=== PATIENT | female | born 1950 | race Caucasian/White ===

== ENCOUNTER 2020-04-22 04:59 | Inpatient (IN) ==
--- NOTE | 2020-03-19 16:16 | PAT Medication Instructions ---
Medication Instructions Date of Service March 19, 2020 Home Medications acetaminophen [Tylenol] 325 mg PO BID PRN atenolol 50 mg PO QAM lisinopril 20 mg PO PM menthol [Biofreeze (menthol)] 1 applic TOPICAL BID PRN omeprazole magnesium [Prilosec OTC] 20 mg PO PM rizatriptan 10 mg PO DIRECTED PRN STOP taking 24 hours before surgery menthol [Biofreeze (menthol)] 1 applic TOPICAL BID PRN Take morning of surgery With a small sip of water, OTHERWISE NOTHING TO EAT OR DRINK AFTER MIDNIGHT: acetaminophen [Tylenol] 325 mg PO BID PRN (okay to take up to 4 hours prior to surgery if needed) atenolol 50 mg PO QAM rizatriptan 10 mg PO DIRECTED PRN (if needed) Take evening before surgery acetaminophen [Tylenol] 325 mg PO BID PRN (if needed) lisinopril 20 mg PO PM omeprazole magnesium [Prilosec OTC] 20 mg PO PM rizatriptan 10 mg PO DIRECTED PRN (if needed) Other Notes If you have any questions please call us at [phone] or [phone] or [phone] or [phone]
--- NOTE | 2020-03-22 13:22 | Anesthesiology Consultation ---
Date of Service March 22, 2020 Assessment & Plan (1) Encounter for pre-operative examination: Chart Review Chart Review: Acceptable Risk for Surgery (pending preop Covid testing) and Patient seen in Pre Admission Testing Per PAT appt 03/22/20, no recent travel. Educated patient to follow up with surgeon's office regarding Covid testing. Educated on importance of self quarantining, social distancing and wearing mask in public both for the patient and household contacts. Teaching & Discussion Pre-Anesthesia Teaching/Discussion Notes: Instructed NPO after midnight before surgery,except medications with 15 cc of water. Medication instructions provided according to the PAT guidelines. History Surgery Operation Date: 04/22/20 12:35 Proposed Procedures p Right Total Knee Arthroplasty - Johan Mccabe MD Height/Weight Height: 5 ft 1 in Weight: 92 kg Allergies Allergy/AdvReac Type Severity Reaction Status Date / Time Penicillins Allergy Hives Verified 03/15/20 14:19 Medications Home Medications Medication Instructions Recorded Confirmed Last Taken acetaminophen [Tylenol] 325 mg PO BID PRN 03/15/20 03/15/20 Unknown atenolol 50 mg PO QAM 03/15/20 03/15/20 Unknown lisinopril 20 mg PO PM 03/15/20 03/15/20 Unknown menthol [Biofreeze (menthol)] 1 applic TOPICAL BID PRN 03/15/20 03/15/20 Unknown omeprazole magnesium [Prilosec OTC] 20 mg PO PM 03/15/20 03/15/20 Unknown rizatriptan 10 mg PO DIRECTED PRN 03/15/20 03/15/20 Unknown Past Medical History Medical History (Updated 03/22/20 @ 13:49 by Mona Ugalde PA-C) Deviated septum Patient presumes- difficult to breath from right side of nostril GERD (gastroesophageal reflux disease) Well controlled and stable HX: breast cancer left - dx'ed 2012- s/p XRT - currently stable Hypertension Migraine Osteoarthritis Exercise / Class Metabolic Activity II 4-5 Yardwork/Stairs/Walk up hill (one flight of stairs- no chest pain or SOB- does have increased knee pain with ambulation ) Past Surgical History Surgical History History of bilateral tubal ligation History of colonoscopy History of esophagogastroduodenoscopy (EGD) History of lumpectomy of left breast radiation no chemo 2013 History of tooth extraction Past Anesthesia History No Hx of Anesthesia Complications and No Family Hx of Anesthesia Complications History of PONV No Hx of PONV and No Hx of Motion Sickness Social History Smoking Status: Never smoker Do You Dip or Chew Tobacco: No Hx Alcohol Use: No Hx Substance Use: No substance use type: does not use Review of Systems Occ cough secondary to sinus issues. Chronic and stable Snoring- no witnessed apnea. No hx of sleep study Patient denies chest pain, shortness of breath, dyspnea on exertion, wheezing, palpitations. No hx of seizures, stroke, LA. No hx of blood clots or blood transfusions Physical Exam Vital Signs VITALS BP 122/81 P 59 TEMP 97.8 SP02 96% RESP 16 Constitutional + obese; no acute distress ENMT Mouth: no TMJ clicking Thyromental Distance: > or= 3.5 Finger Breadths (3.5) Mallampati Class: III Missing molars Upper front permanent bridge Neck neck extension not limited Respiratory normal respiratory effort; no respiratory distress Auscultation: lungs clear to auscultation bilaterally; no wheezes Cardiovascular Rate/Rhythm: regular rate and regular rhythm Heart Sounds: no murmur Vessels: no carotid bruit Musculoskeletal Spine: no pain with cervical ROM Neurologic moves all extremities Psychiatric Orientation: alert Testing Laboratory Results 03/22/20 13:42 03/22/20 13:42 PT 10.3 Seconds (9.0-12.0) 03/22/20 13:42 INR 1.0 (0.9-1.1) 03/22/20 13:42 APTT 27.6 Seconds (21.0-31.0) 03/22/20 13:42 Hemoglobin A1c 5.8 % (4.5-5.6) H 03/22/20 13:42 Urine Color Dark Yellow 03/22/20 13:42 Urine Appearance Turbid (Clear) A 03/22/20 13:42 Urine pH 5.0 (4.5-7.5) 03/22/20 13:42 Ur Specific [place] 1.030 (1.000-1.030) 03/22/20 13:42 Urine Protein Negative (Negative) 03/22/20 13:42 Urine Glucose (UA) Negative (Negative) 03/22/20 13:42 Urine Ketones Negative (Negative) 03/22/20 13:42 Urine Nitrite Negative (Negative) 03/22/20 13:42 Ur Leukocyte Esterase Negative (Negative) 03/22/20 13:42 Urine WBC (Auto) 1-5 /hpf (0-5) 03/22/20 13:42 Urine RBC (Auto) 0-4 /hpf (0-4) 03/22/20 13:42 U Hyaline Cast (Auto) 1-5 /lpf (0-5) 03/22/20 13:42 U Epithel Cells (Auto) >30 /lpf (0-5) H 03/22/20 13:42 Urine Bacteria (Auto) Negative (Negative) 03/22/20 13:42 Blood Type O Positive 03/22/20 13:42 Antibody Screen NEGATIVE 03/22/20 13:42 Electrocardiogram Date: 03/22/20 Findings: + NSR @ (62) Chest X-Ray Date: 03/22/20 Findings: + NAD and + cardiomegaly (mild) Mild elevation the right hemidiaphragm. Stress Test Date: 12/01/16 Type: exercise (ECHO) Resting EF: 63% Resting LV Function: normal Resting RWMA: + none Valvular Disease: AI (mild) Exercise ECHO is normal without resting LV wall motion abnormalities or i nducible ischemia. Stress EKG response normal. MPHR= 86%. 5 METS achieved. No significant arrhythmias. Mild concentric LVH. Grade I diastolic dysfunction. Moderately enlarged LA.
--- NOTE | 2020-03-22 14:33 | XRay Report ---
XR chest Pre-admission PA/Lat HISTORY: Preop. COMPARISON: None. FINDINGS: The lungs are clear. The heart is mildly enlarged. Mild elevation the right hemidiaphragm. No pleural effusions. No pneumothorax. There is a small surgical clip within the left breast. IMPRESSION: Mild cardiomegaly. Otherwise, no acute process within the chest. ACT 112: Negative or not required by law. Electronically signed by: Scar Ackerman M.D. 03/22/2020 2:32 PM
--- NOTE | 2020-03-22 15:36 | Electrocardiogram Report ---
Test Reason : Blood Pressure : / mmHG Vent. Rate : 062 BPM Atrial Rate : 062 BPM P-R Int : 154 ms QRS Dur : 088 ms QT Int : 452 ms P-R-T Axes : 017 003 031 degrees QTc Int : 458 ms Normal sinus rhythm Normal ECG No previous ECGs available Confirmed by Javan Baer ([id number]) on 03/22/2020 3:35:30 PM Referred By: Johan Mccabe Confirmed By:Javan Baer
[2020-03-22 15:59] LABS: Basophils # (auto) 0.01 K/uL (0-0.2); Basophils % (auto) 0.1 %; Eosinophils # (auto) 0.12 K/uL (0-0.5); Eosinophils % (auto) 1.6 %; Hematocrit (blood only) 44.6 % (37-47); Hemoglobin 14.3 g/dL (12.0-16.0); Immature Granulocytes # (auto) 0.01 K/uL (0.00-0.02); Immature Granulocytes % (auto) 0.1 %; Lymphocytes # (auto) 1.62 K/uL (1.2-3.4); Lymphocytes % (auto) 22.1 %; Mean Corpuscular Hemoglobin 28.5 pg (25-34); Mean Corpuscular Hgb Conc 32.1 g/dL (32-36); Monocytes % (auto) 8.2 %; Neutrophils # (auto) 4.98 K/uL (1.4-6.5); Neutrophils % (auto) 67.9 %; Platelet Count 286 K/uL (130-400); RDW Coefficient of Variation 14.2 % (11.5-14.5); RDW Standard Deviation 46.5 fL (36.4-46.3); Red Blood Count 5.01 M/uL (4.2-5.4); White Blood Count 7.34 K/uL (4.8-10.8)
[2020-03-22 16:02] LABS: Appearance Urine Turbid (Clear); Bacteria Urine Automated Negative (Negative); Blood Urine Negative (Negative); Color Urine Dark Yellow; Epithelial Cell Urine Auto >30 /lpf (0-5); Glucose Urine UA Negative (Negative); Ketones Urine Negative (Negative); Leukocyte Esterase Urine Negative (Negative); Nitrite Urine Negative (Negative); Protein Urine Negative (Negative); RBC Urine Automated 0-4 /hpf (0-4); Urobilinogen Urine Negative (Negative)
[2020-03-22 16:05] LABS: Albumin Level 3.7 gm/dl (3.4-5.0); BUN Creatinine Ratio 22.4 (10-20); Bilirubin Urine Negative (Negative); Calcium 9.6 mg/dl (8.5-10.1); Creatinine Clr Calc Pharmacy 72.2 ml/min; Est GFR (African American) 92.8; Ictotest Urine Negative (Negative); Potassium 4.2 mmol/L (3.5-5.1)
[2020-03-22 16:07] LABS: Partial Thromboplastin Time 27.6 Seconds (21.0-31.0); Prothrombin Time 10.3 Seconds (9.0-12.0)
[2020-03-23 05:39] LABS: Estimated Average Glucose 120 mg/dl; Hemoglobin A1C 5.8 % (4.5-5.6)
--- NOTE | 2020-04-21 12:31 | History & Physical Report ---
Date of Service April 21, 2020 Assessment & Plan (1) Primary osteoarthritis of right knee: Treatment options discussed. She has failed conservative measures as above. Risks, benefits and alternatives to surgery including but not limited to infection, DVT, pain, stiffness, need for revision surgery, damage to blood vessels, damage to nerves, PE, , were discussed with the patient and they wish to proceed. Plan will be for right total knee arthroplasty at [facility] on 04/22/20. Will plan on ASA 81mg BID x 1 mo for DVT prophylaxis, home with home health PT upon discharge. All questions answered. F/u post operatively. History of Present Illness Chief Complaint: Right knee pain Primary Care Provider: NO PCP Patient is a 70 year old female with PMHx significant for HTN and breast Ca who presents with longstanding right knee pain. She is unable to carry out her normal daily activity due to pain. She has failed conservative measures inclu ding cortisone injections, viscoelastic injections, and NSAIDs. She would like to proceed with right knee replacement. Patient denies headaches, sweats, fevers, chills, double vision, blurred vision, cough, sore throat, dysphagia, chest pain, sob, wheezing, n/v/d/c, numbness, tingling, fatigue, urinary symptoms, mood disorders. ROS positive for right knee pain and stiffness. Allergies Allergy/AdvReac Type Severity Reaction Status Date / Time Penicillins Allergy Hives Verified 03/15/20 14:19 Home Medications Home Medications Medication Instructions Recorded Confirmed Type acetaminophen [Tylenol] 325 mg PO BID PRN 03/15/20 03/15/20 History atenolol 50 mg PO QAM 03/15/20 03/15/20 History lisinopril 20 mg PO PM 03/15/20 03/15/20 History menthol [Biofreeze (menthol)] 1 applic TOPICAL BID PRN 03/15/20 03/15/20 History omeprazole magnesium [Prilosec OTC] 20 mg PO PM 03/15/20 03/15/20 History rizatriptan 10 mg PO DIRECTED PRN 03/15/20 03/15/20 History Past Med/Surg History Medical History (Updated 04/21/20 @ 12:31 by Devan Proctor) Deviated septum Patient presumes- difficult to breath from right side of nostril GERD (gastroesophageal reflux disease) Well controlled and stable HX: breast cancer left - dx'ed 2013- s/p XRT - currently stable Hypertension Migraine Osteoarthritis Surgical History History of bilateral tubal ligation History of colonoscopy History of esophagogastroduodenoscopy (EGD) History of lumpectomy of left breast radiation no chemo 2012 History of tooth extraction Social History Smoking Status: Never smoker Second Hand Exposure: Yes; Do You Dip or Chew Tobacco: No; Tobacco Cessation Education Requested by Patient: No Hx Alcohol Use: No Hx Substance Use: No Preferred Language: Malagasy Communication Ability: Effective Surgical Scrub Technologist Required: No Beliefs That Will Affect Care: None Current Living Situation: Spouse Other Information That Helps Us Care for You: No Feels Safe at Home: Yes Safety Concerns: Feels Safe At This Time Review of Systems All systems reviewed & are unremarkable except as noted in HPI & below Physical Exam Constitutional: well developed and well nourished; no acute distress Eyes: PERRL, conjunctivae normal, anicteric sclerae ENMT: external ear and nose normal, oropharynx normal Neck: trachea midline, no thyromegaly Respiratory: normal respiratory effort, lungs clear to auscultation Cardiovascular: RRR, no murmur, no edema Musculoskeletal: Right knee: Painful ROM 0-100 degrees, stable to valgus and varus stress. Mild to moderate effusion. Mild crepitation. Positive [place] Skin: no rashes, warm and dry Neurologic: patellar DTR's 2+ bilat, sensation intact Psychiatric: A+Ox3, euthymic affect Results & Data ([facility]) Laboratory Results Lab Results 03/22/20 03/22/20 03/22/20 Range/Units 13:42 13:42 13:42 WBC 7.34 (4.8-10.8) K/uL RBC 5.01 (4.2-5.4) M/uL Hgb 14.3 (12.0-16.0) g/dL Hct 44.6 (37-47) % MCV 89.0 (80-100) fL MCH 28.5 (25-34) pg MCHC 32.1 (32-36) g/dL RDW Std Deviation 46.5 H (36.4-46.3) fL RDW Coeff of Trina 14.2 (11.5-14.5) % Plt Count 286 (130-400) K/uL MPV 11.0 H (7.4-10.4) fL Immature Gran % (Auto) 0.1 % Neut % (Auto) 67.9 % Lymph % (Auto) 22.1 % [place] % (Auto) 8.2 % Eos % (Auto) 1.6 % Baso % (Auto) 0.1 % Neut # (Auto) 4.98 (1.4-6.5) K/uL Lymph # (Auto) 1.62 (1.2-3.4) K/uL [place] # (Auto) 0.60 H (0.11-0.59) K/uL Eos # (Auto) 0.12 (0-0.5) K/uL Baso # (Auto) 0.01 (0-0.2) K/uL Immature Gran # (Auto) 0.01 (0.00-0.02) K/uL PT 10.3 (9.0-12.0) Seconds INR 1.0 (0.9-1.1) APTT 27.6 (21.0-31.0) Seconds PTT Ratio 1.0 Sodium (136-145) mmol/L Potassium (3.5-5.1) mmol/L Chloride (98-107) mmol/L Carbon Dioxide (21-32) mmol/L Anion Gap (3-11) BUN (7-18) mg/dl Creatinine (0.6-1.2) mg/dl Est Cr Clr Drug Dosing ml/min Est GFR ( Amer) Est GFR (Non-Af Amer) BUN/Creatinine Ratio (10-20) Glucose (70-99) mg/dl Estimat Average Glucose mg/dl Hemoglobin A1c (4.5-5.6) % Calcium (8.5-10.1) mg/dl Albumin (3.4-5.0) gm/dl Urine Color Urine Appearance (Clear) Urine pH (4.5-7.5) Ur Specific [place] (1.000-1.030) Urine Protein (Negative) Urine Glucose (UA) (Negative) Urine Ketones (Negative) Urine Blood (Negative) Urine Nitrite (Negative) Urine Bilirubin (Negative) Urine Urobilinogen (Negative) Ur Leukocyte Esterase (Negative) Urine WBC (Auto) (0-5) /hpf Urine RBC (Auto) (0-4) /hpf U Hyaline Cast (Auto) (0-5) /lpf U Epithel Cells (Auto) (0-5) /lpf Urine Bacteria (Auto) (Negative) Blood Type O Positive Antibody Screen NEGATIVE 03/22/20 03/22/20 03/22/20 Range/Units 13:42 13:42 13:42 WBC (4.8-10.8) K/uL RBC (4.2-5.4) M/uL Hgb (12.0-16.0) g/dL Hct (37-47) % MCV (80-100) fL MCH (25-34) pg MCHC (32-36) g/dL RDW Std Deviation (36.4-46.3) fL RDW Coeff of Trina (11.5-14.5) % Plt Count (130-400) K/uL MPV (7.4-10.4) fL Immature Gran % (Auto) % Neut % (Auto) % Lymph % (Auto) % [place] % (Auto) % Eos % (Auto) % Baso % (Auto) % Neut # (Auto) (1.4-6.5) K/uL Lymph # (Auto) (1.2-3.4) K/uL [place] # (Auto) (0.11-0.59) K/uL Eos # (Auto) (0-0.5) K/uL Baso # (Auto) (0-0.2) K/uL Immature Gran # (Auto) (0.00-0.02) K/uL PT (9.0-12.0) Seconds INR (0.9-1.1) APTT (21.0-31.0) Seconds PTT Ratio Sodium 143 (136-145) mmol/L Potassium 4.2 (3.5-5.1) mmol/L Chloride 110 H (98-107) mmol/L Carbon Dioxide 28 (21-32) mmol/L Anion Gap 5.0 (3-11) BUN 17 (7-18) mg/dl Creatinine 0.76 (0.6-1.2) mg/dl Est Cr Clr Drug Dosing 72.2 ml/min Est GFR ( Amer) 92.8 Est GFR (Non-Af Amer) 80.0 BUN/Creatinine Ratio 22.4 H (10-20) Glucose 98 (70-99) mg/dl Estimat Average Glucose 120 mg/dl Hemoglobin A1c 5.8 H (4.5-5.6) % Calcium 9.6 (8.5-10.1) mg/dl Albumin 3.7 (3.4-5.0) gm/dl Urine Color Dark Yellow Urine Appearance Turbid A (Clear) Urine pH 5.0 (4.5-7.5) Ur Specific [place] 1.030 (1.000-1.030) Urine Protein Negative (Negative) Urine Glucose (UA) Negative (Negative) Urine Ketones Negative (Negative) Urine Blood Negative (Negative) Urine Nitrite Negative (Negative) Urine Bilirubin Negative (Negative) Urine Urobilinogen Negative (Negative) Ur Leukocyte Esterase Negative (Negative) Urine WBC (Auto) 1-5 (0-5) /hpf Urine RBC (Auto) 0-4 (0-4) /hpf U Hyaline Cast (Auto) 1-5 (0-5) /lpf U Epithel Cells (Auto) >30 H (0-5) /lpf Urine Bacteria (Auto) Negative (Negative) Blood Type Antibody Screen Diagnostic Findings Right knee: Tricompartmental degenerative changes throughout the knee, bone on bone medial compartment with periarticular osteophyte formation and subchondral sclerosis.
[2020-04-22] MEDS ORDERED: ROPIVACAINE 0.5% HCL/PF 150 MG, BUPIVACAINE 0.5% MPF 30 ML, EPINEPHrine 30MG/30ML (OR U... INSTIL SCH ×2 (06:00)
[2020-04-22] MEDS ORDERED: LR 500ML BOLUS, THEN 15ML/HR IV SCH (06:00)
[2020-04-22] MEDS ORDERED: CeleBREX 200 MG CAP PO SCH (06:00)
[2020-04-22] MEDS ORDERED: METOCLOPRAMIDE HCL 10 MG TABLET PO SCH (06:00)
[2020-04-22] MEDS ORDERED: GABAPENTIN 300 MG CAP PO SCH (06:00)
[2020-04-22] MEDS ORDERED: FAMOTIDINE 20 MG TAB PO SCH (06:00)
[2020-04-22] MEDS ORDERED: TRANEXAMIC ACID 1,000 MG **IV Intra-op IV SCH (06:00)
[2020-04-22] MEDS ORDERED: TRANEXAMIC ACID 1,000 MG **IV Pre-op IV SCH (06:00)
[2020-04-22] MEDS ORDERED: ACETAMINOPHEN 500 MG TAB PO SCH (06:00)
[2020-04-22] MEDS ORDERED: CLINDAMYCIN 600 MG/54 ML BAG IV SCH (06:00)
[2020-04-22] MEDS ORDERED: OXYCODONE HCL 10 MG TABCR (OXYCONTIN) PO SCH (06:00)
[2020-04-22] MEDS ORDERED: dexAMETHasone 4 MG TAB PO SCH (06:00)
[2020-04-22] MEDS ORDERED: BUPIVACAINE 0.5 % 5 MG/1 ML PF 10ML VIAL ONE (06:40)
[2020-04-22] MEDS ORDERED: BUPIVACAINE/EPINEPHRINE 0.25% 1:200,000 30 ML VIAL ONE (06:40)
[2020-04-22] MEDS ORDERED: DEXAMETHASONE SOD INJ 4 MG/ML VIAL ONE (06:40)
[2020-04-22] MEDS ORDERED: MIDAZOLAM HCL 1 MG/ML 2ML VIAL ONE (06:56)
[2020-04-22] MEDS ORDERED: fentaNYL citrate 100 MCG/2 ML VIAL ONE (06:56)
--- NOTE | 2020-04-22 06:59 | History & Physical Bridge Note ---
Date of Service April 22, 2020 History & Physical Bridge Note I have examined the patient, reviewed the History & Physical and in the interval since the performance of the History & Physical I have noted the following changes of clinical significance: no changes noted
[2020-04-22] MEDS ORDERED: BACITRACIN INJ 50,000 UNIT VIAL ONE (07:03)
[2020-04-22] MEDS ORDERED: fentaNYL citrate 100 MCG/2 ML VIAL IV PRN (07:36)
[2020-04-22] MEDS ORDERED: ATROPINE SULFATE 0.1 MG/ML 10ML SYR IV PRN (07:36)
[2020-04-22] MEDS ORDERED: ONDANSETRON INJ 2 MG/ML 2 ML VIAL IV PRN ×2 (07:36→10:59)
[2020-04-22] MEDS ORDERED: ePHEDrine sulfate 50 MG/ML AMP IV PRN (07:36)
[2020-04-22] MEDS ORDERED: LIDOCAINE HCL 2% 2 ML VIAL/AMP(20MG/ML) INFIL ONE (08:34)
[2020-04-22] MEDS ORDERED: PROPOFOL IV EMULSION 10 MG/ML 20 ML VIAL IV ONE ×2 (08:34→09:57)
[2020-04-22] MEDS ORDERED: ONDANSETRON INJ 2 MG/ML 2 ML VIAL ONE (08:34)
[2020-04-22] MEDS ORDERED: PHENYLEPHRINE 100MCG/ML 5ML SYR ONE (09:15)
--- NOTE | 2020-04-22 09:52 | Operative Report ---
Post Operative Report Pre & Post Diagnosis Operation Date: 04/22/20 07:50 Pre-Op Diagnosis: Osteoarthritis, Right Knee Post-Op Diagnosis: Osteoarthritis, Right Knee I identified the patient and participated in the time-out.: Yes Procedure Operation Date: 04/22/20 07:50 Actual Procedures p Right Total Knee Arthroplasty(Right) - Johan Mccabe MD Surgeon Johan Mccabe MD Elevator Repairer Devan Proctor PA-C Estimated Blood Loss 20 Findings Consistent with Post-Op Diagnosis Specimens Bone and tissue Drains None Anesthesia Type MAC Spinal Regional Complications none Disposition Accompanied Patient To Recovery: No Disposition: Recovery Room Indications The patient is a 70-year-old female longstanding arthritic change in the right knee. Is ptyy-ie-mpma medial compartment. She is failed conservative measures including injection, anti-inflammatories and rehab. She wishes to proceed with a right total knee arthroplasty. Description of Procedure Risks benefits and alternatives of surgery including but not limited to infection, DVT, pain, stiffness, need for surgery, damage to blood vessels, damage to nerves or risks of anesthesia were discussed with the patient and they wished to proceed. The patient was identified and the laterality was confirmed and marked. They received a preoperative antibiotic as well as a spinal anesthetic and an abductor canal block. A well-padded tourniquet was applied and then the limb was prepped and draped in standard manner with ChloraPrep. The limb was exsanguinated and the tourniquet was inflated. I made a standard anterior incision. I sharply incised the skin then utilized Bovie electrocautery to achieve hemostasis. I made a medial parapatellar arth rotomy and mobilized the patella laterally. I then excised the anterior horns of the medial and lateral meniscus as well as the infrapatellar fat pad. I elevated a portion of the MCL off of the tibia. I then pinned into place a patient-matched distal femoral cutting guide and made my distal femoral resection. I then pinned into place the 5 in 1 femoral cutting guide. I made my anterior, posterior and chamfer cuts. I then excised the cruciates and the remaining portions of the menisci. I then pinned into place a patient- matched tibial cutting guide and made my tibial resection. I then pinned into place the tibial plate a utilizing alignment peggy to confirm rotation. I then cut for the post. Utilizing a lamina rock cutter and I then removed posterior osteophytes off the femur. I then placed a trial femur into position and cut for the trochlear component. I then sequentially trialed to size the polyethylene. We had good stability mediolaterally once we got up to a 15 poly-but she was losing extension so I elected to proceed with a constrained liner and there was good stability with a strain liner and full range of motion with a 13 constrained until there was good soft tissue balancing and range of motion. I then prepared the patella with a freehand cut utilizing sagittal saw. I sized and drilled for the patella. There was good tracking to the patella no lateral release was needed. All the trial components were removed. The deep tissues were anesthetized with an ortho mix solution. Then with Simplex HV with gentamicin cement, I cemented my definitive components. Definitive components, Mora and Nephew David 2: Femur 3 Tibia 3 Poly 13 constrained Patella 29 oval A betadine soak was performed. The arthrotomy was closed with interrupted #1 Vicryl suture subcutaneous tissue was closed with interrupted 2-0 Vicryl suture. The skin was closed with with sarah. An Acticoat and Moni dressing were placed. Sterile dressings were applied. All needle and sponge counts were correct at the end of the procedure patient was transferred to the PACU in stable condition without apparent complication. The PA-C was necessary for assistance with procedure for assistance in positioning, prepping, draping, retraction and closure. I attest to the content of the Intraoperative Record and any orders documented therein. Any exceptions are noted below.
--- NOTE | 2020-04-22 10:58 | XRay Report ---
RIGHT KNEE 2 VIEWS History: Right total knee arthroplasty. Degenerative arthritis. Postop. FINDINGS: The patient is status post a right total knee arthroplasty. The hardware is intact. No frac ture or dislocation. Skin sarah are in place. IMPRESSION: Right total knee arthroplasty. No evidence for hardware complication. ACT 112: Negative or not required by law. Electronically signed by: Scar Ackerman M.D. 04/22/2020 10:57 AM
[2020-04-22] MEDS ORDERED: METOCLOPRAMIDE HCL INJ 5 MG/ML 2 ML VIAL IV PRN (10:59)
[2020-04-22] MEDS ORDERED: bisacodyL 10 MG SUPP PR PRN (10:59)
[2020-04-22] MEDS ORDERED: RIZATRIPTAN BENZOATE 10 MG TAB PO PRN (10:59)
[2020-04-22] MEDS ORDERED: MAGNESIUM HYDROXIDE SUSP 30 ML UDC PO PRN (10:59)
[2020-04-22] MEDS ORDERED: VANCOMYCIN CONSULT ACTIVE PRN (10:59)
[2020-04-22] MEDS ORDERED: NALOXONE HCL 0.4 MG/1 ML VIAL/CARP IV PRN (10:59)
[2020-04-22] MEDS: SODIUM CHLORIDE 0.9% 1000ML 1,000 ML IV SCH ×2 (12:13→20:37)
--- NOTE | 2020-04-22 12:25 | Anesthesiology Progress Note ---
Date of Service April 22, 2020 Anesthesia Post Procedure Vital Signs Vital Signs: Temp Pulse Pulse Resp BP BP Pulse Ox 04/22/20 12:10 36.4 C L 68 16 109/73 95 04/22/20 11:41 36.3 C L 62 16 112/72 96 04/22/20 11:00 36.5 C 65 17 110/69 97 04/22/20 10:45 36.6 C 64 16 108/68 95 04/22/20 10:35 65 16 105/65 95 04/22/20 10:25 67 16 105/62 97 04/22/20 10:16 36.9 C 72 16 106/64 95 04/22/20 06:11 36.6 C 56 L 18 148/83 H 97 Pain Intensity Right Knee: Pain Intensity: 1 Transfer of Care Handoff Completed per policy Notes Mental Status: alert / awake / arousable Patient Amnestic to Procedure: Yes Nausea / Vomiting: adequately controlled Pain: adequately controlled Airway Patency, RR, SpO2: stable & adequate BP & HR: stable & adequate Hydration State: stable & adequate Anesthetic Complications: no major complications apparent
--- NOTE | 2020-04-22 12:42 | Consultation ---
Date of Consultation April 22, 2020 Assessment & Plan (1) Primary osteoarthritis of right knee: S/P R TKA by Dr. Mccabe POD #0 EBL 20 ml pt tolerated procedure well Pain/wound management per Ortho Activity and therapy as directed by Ortho Encourage incentive spirometry and wean O2 as able Monitor H&H, preop 14.3 and 44.6 (2) Hypertension: BP controlled continue lisinopril and atenolol parameters placed monitor (3) GERD (gastroesophageal reflux disease): continue PPI (4) DVT prophylaxis: ASA BID per ortho Disposition: per primary Follow up: PCP Shahana Hollins PA-C upon discharge Pt was seen and examined in collaboration with Dr. Andrade, please see addendum Thank you for this consultation. We will follow the patient with you during their hospital stay. You can reach a member of the [facility] Hospitalist Team 26/03 via pager @ [phone]. Supervising Physician Co-Signing Physician Notes Patient seen and examined by me, care coordinated with Madyson Husain PA-C, please refer to her note above for further details. Pt is a 70 y/o female with hx of HTN, HLD, prediabetes, history of migraine, history of left breast CA status post lumpectomy, anxiety who presented for elective right total knee arthroplasty. She tolerated procedure well. She denies any fever, chills, sweats, lightheadedness, dizziness, chest pain, shortness breath, cough, n/v/d, abdominal pain. Her hypertension is controlled with atenolol and lisinopril. She did take her atenolol this morning. She states she often forgets to take lisinopril. She does have history of left breast cancer this otherwise in remission. She is currently not on any hormonal medication. She is currently sitting up in bed, in no acute distress. Her daughter is at the bedside. Patient is alert and oriented x3, answering questions appropriately. Lung sounds are clear to auscultation b/l without any wheezing rhonchi or crackles. She was encouraged to use incentive spirometry. Heart sounds regular. Abdomen soft, nontender, nondistended, obese. No sensory loss noted on her lower extremities however patient is not able to move her lower extremities at this moment (post surg). Skin is otherwise warm, dry, well perfused. We will monitor her vital signs, and adjust medication accordingly given her known hypertension. Last A1c 5.8%, no concerns. Preop EKG was normal. Will monitor for postop blood loss anemia. Encourage incentive spirometry. Please contact us with any questions or concerns. Dominguez Andrade MD History of Present Illness Requesting Physician: Dr. Mccabe Reason for Consultation: Post op medical management Attending Physician: Johan Mccabe MD History of Present Illness This is a 70-year-old female who has significant past medical history of HTN, HLD, prediabetes, history of migraine, history of left breast CA status post lumpectomy, anxiety who presents for elective right total knee arthroplasty. She tolerated procedure well. Currently she denies any pain and is concerned because, "I cannot move my legs." She denies any fever, chills, sweats, lightheadedness, dizziness, chest pain, shortness breath, cough, n/v/d, abdominal pain. Prior to procedure she was urinating without difficulty and denies any melena, hematochezia. Her hypertension is controlled with atenolol and lisinopril. She did take her atenolol this morning. She states she often forgets to take lisinopril. She does have history of left breast cancer this otherwise in remission. She is currently not on any hormonal medication. Allergies Allergy/AdvReac Type Severity Reaction Status Date / Time Penicillins Allergy Hives Verified 04/22/20 05:36 Home Medications Home Medications Medication Instructions Recorded Confirmed Type acetaminophen [Tylenol] 325 mg PO BID PRN 03/15/20 04/22/20 History atenolol 50 mg PO QAM 03/15/20 04/22/20 History lisinopril 20 mg PO PM 03/15/20 04/22/20 History menthol [Biofreeze (menthol)] 1 applic TOPICAL BID PRN 03/15/20 04/22/20 History omeprazole magnesium [Prilosec OTC] 20 mg PO PM 03/15/20 04/22/20 History rizatriptan 10 mg PO DIRECTED PRN 03/15/20 04/22/20 History Patient History Medical History (Updated 04/22/20 @ 13:15 by Madyson Husain PA-C) Deviated septum Patient presumes- difficult to breath from right side of nostril GERD (gastroesophageal reflux disease) Well controlled and stable HX: breast cancer left - dx'ed 2013- s/p XRT - currently stable Hypertension Migraine Osteoarthritis Surgical History History of bilateral tubal ligation History of colonoscopy History of esophagogastroduodenoscopy (EGD) History of lumpectomy of left breast radiation no chemo 2012 History of tooth extraction Family History Sister Cerebral aneurysm, Onset Age: 26 Social History Smoking Status: Never smoker Second Hand Exposure: Yes; Do You Dip or Chew Tobacco: No; Tobacco Cessation Education Requested by Patient: No Hx Alcohol Use: No Hx Substance Use: No Preferred Language: Greek Communication Ability: Effective 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 Results & Data ([facility]) Vital Signs (Past 12 Hours) Vital Signs Temp Pulse Pulse Resp BP BP Pulse Ox 04/22/20 11:00 36.5 C 65 17 110/69 97 04/22/20 10:45 36.6 C 64 16 108/68 95 04/22/20 10:35 65 16 105/65 95 04/22/20 10:25 67 16 105/62 97 04/22/20 10:16 36.9 C 72 16 106/64 95 04/22/20 06:11 36.6 C 56 L 18 148/83 H 97 Laboratory Results Preoperative lab work H&H 14.3 and 44.6, RBC 7.34, platelet 286 BUN 17, creatinine 0.76 Diagnostic Findings Knee Xray: IMPRESSION: Right total knee arthroplasty. No evidence for hardware complication. CXR: IMPRESSION: Mild cardiomegaly. Otherwise, no acute process within the chest. Medications Administered Acetaminophen (Acetaminophen 500 Mg Tab) 1,000 mg PO PREOP CHELI Stop: 04/22/20 18:00 Last Admin: 04/22/20 05:52 Dose: 1,000 mg Documented by: [id number] Celecoxib (Celebrex 200 Mg Cap) 200 mg PO PREOP CHELI Stop: 04/22/20 18:00 Last Admin: 04/22/20 05:53 Dose: 200 mg Documented by: [id number] Dexamethasone (Dexamethasone 4 Mg Tab) 8 mg PO PREOP CHELI Stop: 04/22/20 18:00 Last Admin: 04/22/20 05:54 Dose: 8 mg Documented by: [id number] Famotidine (Famotidine 20 Mg Tab) 20 mg PO PREOP CHELI Stop: 04/22/20 18:00 Last Admin: 04/22/20 05:54 Dose: 20 mg Documented by: [id number] Gabapentin (Gabapentin 300 Mg Cap) 300 mg PO PREOP CHELI Stop: 04/22/20 18:00 Last Admin: 04/22/20 05:53 Dose: 300 mg Documented by: [id number] Lactated Ringer's (Lr) 1,000 mls @ 15 mls/hr IV .Q24H CHELI Stop: 04/22/20 18:00 Last Infusion: 04/22/20 08:08 Dose: 0 mls/hr Documented by: [id number] Admin: 04/22/20 05:42 Dose: 15 mls/hr Documented by: [id number] Clindamycin Phosphate (Cleocin) 600 mg in 54 mls @ 100 mls/hr IV PREOP CHELI Stop: 04/23/20 05:59 Last Infusion: 04/22/20 11:13 Dose: 0 mls/hr Documented by: [id number] Admin: 04/22/20 08:08 Dose: 100 mls/hr Documented by: [id number] Tranexamic Acid (Tranexamic Acid / 0.7% Nacl) 1,000 mg in 100 mls @ 600 mls/hr IV TODAY@0600 CHELI Stop: 04/22/20 18:00 Last Infusion: 04/22/20 11:10 Dose: 0 mls/hr Documented by: [id number] Admin: 04/22/20 07:53 Dose: 600 mls/hr Documented by: [id number] Tranexamic Acid (Tranexamic Acid / 0.7% Nacl) 1,000 mg in 100 mls @ 600 mls/hr IV TODAY@0600 CHELI Stop: 04/22/20 18:00 Last Infusion: 04/22/20 11:10 Dose: 0 mls/hr Documented by: [id number] Admin: 04/22/20 09:32 Dose: 600 mls/hr Documented by: [id number] Sodium Chloride (Nss 1000ml) 1,000 mls @ 100 mls/hr IV .Q10H CHELI Stop: 04/23/20 06:00 Last Admin: 04/22/20 12:13 Dose: 100 mls/hr Documented by: [id number] Metoclopramide HCl (Metoclopramide Hcl 10 Mg Tablet) 10 mg PO PREOP CHELI Stop: 04/22/20 18:00 Last Admin: 04/22/20 05:54 Dose: 10 mg Documented by: [id number] Oxycodone HCl (Oxycodone Hcl 10 Mg Tabcr (Oxycontin)) 10 mg PO PREOP CHELI Stop: 04/22/20 18:00 Last Admin: 04/22/20 05:53 Dose: 10 mg Documented by: [id number] Discontinued Medications Bacitracin (Bacitracin Inj 50,000 Unit Vial) Confirm Administered Dose 50,000 units .ROUTE .STK-MED ONE Stop: 04/22/20 07:04 Last Admin: 04/22/20 09:33 Dose: 50,000 units Documented by: [id number] Ropivacaine 150 mg/Bupivacaine HCl 30 ml/Epinephrine HCl 0.15 mg/Ketorolac Tromethamine 30 mg/Dexamethasone 4 mg/ Ketamine HCl 10 mg/ Clonidine HCl 100 mcg/ Sodium Chloride 93.35 mls @ 0 mls/hr INSTIL PREOP CHELI Stop: 04/22/20 12:00 Last Admin: 04/22/20 09:33 Dose: 93.4 mls/hr Documented by: [id number]
[2020-04-22] MEDS: ACETAMINOPHEN 500 MG TAB PO SCH ×2 (13:33→22:39)
[2020-04-22] MEDS: OXYCODONE HCL IR 5 MG TAB (IMMEDIATE RELEASE) PO PRN (19:27)
[2020-04-22] MEDS: SENNA 8.6 MG TAB PO SCH (20:39)
[2020-04-22] MEDS: ASPIRIN 81 MG ECTAB PO SCH (20:40)
[2020-04-22] MEDS: DOCUSATE SODIUM 100 MG CAP PO SCH (20:40)
[2020-04-22] MEDS: CeleBREX 200 MG CAP PO SCH (20:40)
[2020-04-22] MEDS: PANTOprazole 40 MG TAB PO SCH (20:41)
[2020-04-22] MEDS: lisinopriL 20 MG TAB PO SCH ×2 (20:41→20:47)
[2020-04-22] MEDS ORDERED: VANCOMYCIN HCL 1,500 MG in SODIUM CHLORIDE 0.9% 500 ML IV SCH (21:00)
[2020-04-23] MEDS: ACETAMINOPHEN 500 MG TAB PO SCH ×3 (05:52→21:03)
[2020-04-23 06:25] LABS: Hematocrit (blood only) 33.9 % (37-47); Mean Corpuscular Hemoglobin 29.1 pg (25-34); Mean Corpuscular Hgb Conc 32.4 g/dL (32-36); Mean Corpuscular Volume 89.7 fL (80-100); Mean Platelet Volume 10.6 fL (7.4-10.4); Platelet Count 237 K/uL (130-400); RDW Coefficient of Variation 14.2 % (11.5-14.5); RDW Standard Deviation 46.9 fL (36.4-46.3); Red Blood Count 3.78 M/uL (4.2-5.4); White Blood Count 15.05 K/uL (4.8-10.8)
[2020-04-23 06:55] LABS: BUN Creatinine Ratio 20.9 (10-20); Calcium 8.6 mg/dl (8.5-10.1); Creatinine Clr Calc Pharmacy 66.9 ml/min; Est GFR (African American) 84.6; Potassium 4.5 mmol/L (3.5-5.1)
--- NOTE | 2020-04-23 07:34 | Orthopedic Progress Note ---
Date of Service April 23, 2020 Assessment & Plan (1) Primary osteoarthritis of right knee: POD#1 Right TKA -Pain management -PT/OT -DVT prophylaxis-SCDs, TEDs, [id number] bid -Am labs-hemoglobin at 11 down from 14.3 preop. Acute blood loss anemia likely due to surgical loss vs dilutional effect -D/C planning-home with HHPT likely tomorrow. Admission and Anticipated Discharge Date Admission Date: April 22, 2020 Subjective Patient seen sitting in bedside chair this morning. She is doing well, minimal pain. No chest pain, sob, dizziness, nausea, vomiting. Is having some gas type pain this morning. Review of Systems Review of Systems: All systems reviewed & are unremarkable except as noted in HPI & below Physical Exam Physical Exam: Right knee dressing is c/d/i, toes mobile, good dorsiflexion, no calf tenderness. Distally n/v status is intact. Constitutional: well developed and well nourished; no acute distress Results & Data ([facility]) Vital Signs (Past 12 Hours) Vital Signs Temp Pulse Resp BP Pulse Ox 04/23/20 03:04 36.8 C 73 16 104/64 94 04/22/20 23:12 36.7 C 70 16 113/69 94 Laboratory Results Lab Results 03/22/20 03/22/20 03/22/20 Range/Units 13:42 13:42 13:42 WBC 7.34 (4.8-10.8) K/uL RBC 5.01 (4.2-5.4) M/uL Hgb 14.3 (12.0-16.0) g/dL Hct 44.6 (37-47) % MCV 89.0 (80-100) fL MCH 28.5 (25-34) pg MCHC 32.1 (32-36) g/dL RDW Std Deviation 46.5 H (36.4-46.3) fL RDW Coeff of Trina 14.2 (11.5-14.5) % Plt Count 286 (130-400) K/uL MPV 11.0 H (7.4-10.4) fL Immature Gran % (Auto) 0.1 % Neut % (Auto) 67.9 % Lymph % (Auto) 22.1 % [place] % (Auto) 8.2 % Eos % (Auto) 1.6 % Baso % (Auto) 0.1 % Neut # (Auto) 4.98 (1.4-6.5) K/uL Lymph # (Auto) 1.62 (1.2-3.4) K/uL [place] # (Auto) 0.60 H (0.11-0.59) K/uL Eos # (Auto) 0.12 (0-0.5) K/uL Baso # (Auto) 0.01 (0-0.2) K/uL Immature Gran # (Auto) 0.01 (0.00-0.02) K/uL PT 10.3 (9.0-12.0) Seconds INR 1.0 (0.9-1.1) APTT 27.6 (21.0-31.0) Seconds PTT Ratio 1.0 Sodium (136-145) mmol/L Potassium (3.5-5.1) mmol/L Chloride (98-107) mmol/L Carbon Dioxide (21-32) mmol/L Anion Gap (3-11) BUN (7-18) mg/dl Creatinine (0.6-1.2) mg/dl Est Cr Clr Drug Dosing ml/min Est GFR ( Amer) Est GFR (Non-Af Amer) BUN/Creatinine Ratio (10-20) Glucose (70-99) mg/dl Estimat Average Glucose mg/dl Hemoglobin A1c (4.5-5.6) % Calcium (8.5-10.1) mg/dl Albumin (3.4-5.0) gm/dl Urine Color Urine Appearance (Clear) Urine pH (4.5-7.5) Ur Specific [place] (1.000-1.030) Urine Protein (Negative) Urine Glucose (UA) (Negative) Urine Ketones (Negative) Urine Blood (Negative) Urine Nitrite (Negative) Urine Bilirubin (Negative) Urine Urobilinogen (Negative) Ur Leukocyte Esterase (Negative) Urine WBC (Auto) (0-5) /hpf Urine RBC (Auto) (0-4) /hpf U Hyaline Cast (Auto) (0-5) /lpf U Epithel Cells (Auto) (0-5) /lpf Urine Bacteria (Auto) (Negative) Blood Type O Positive Antibody Screen NEGATIVE 03/22/20 03/22/20 03/22/20 Range/Units 13:42 13:42 13:42 WBC (4.8-10.8) K/uL RBC (4.2-5.4) M/uL Hgb (12.0-16.0) g/dL Hct (37-47) % MCV (80-100) fL MCH (25-34) pg MCHC (32-36) g/dL RDW Std Deviation (36.4-46.3) fL RDW Coeff of Trina (11.5-14.5) % Plt Count (130-400) K/uL MPV (7.4-10.4) fL Immature Gran % (Auto) % Neut % (Auto) % Lymph % (Auto) % [place] % (Auto) % Eos % (Auto) % Baso % (Auto) % Neut # (Auto) (1.4-6.5) K/uL Lymph # (Auto) (1.2-3.4) K/uL [place] # (Auto) (0.11-0.59) K/uL Eos # (Auto) (0-0.5) K/uL Baso # (Auto) (0-0.2) K/uL Immature Gran # (Auto) (0.00-0.02) K/uL PT (9.0-12.0) Seconds INR (0.9-1.1) APTT (21.0-31.0) Seconds PTT Ratio Sodium 143 (136-145) mmol/L Potassium 4.2 (3.5-5.1) mmol/L Chloride 110 H (98-107) mmol/L Carbon Dioxide 28 (21-32) mmol/L Anion Gap 5.0 (3-11) BUN 17 (7-18) mg/dl Creatinine 0.76 (0.6-1.2) mg/dl Est Cr Clr Drug Dosing 72.2 ml/min Est GFR ( Amer) 92.8 Est GFR (Non-Af Amer) 80.0 BUN/Creatinine Ratio 22.4 H (10-20) Glucose 98 (70-99) mg/dl Estimat Average Glucose 120 mg/dl Hemoglobin A1c 5.8 H (4.5-5.6) % Calcium 9.6 (8.5-10.1) mg/dl Albumin 3.7 (3.4-5.0) gm/dl Urine Color Dark Yellow Urine Appearance Turbid A (Clear) Urine pH 5.0 (4.5-7.5) Ur Specific [place] 1.030 (1.000-1.030) Urine Protein Negative (Negative) Urine Glucose (UA) Negative (Negative) Urine Ketones Negative (Negative) Urine Blood Negative (Negative) Urine Nitrite Negative (Negative) Urine Bilirubin Negative (Negative) Urine Urobilinogen Negative (Negative) Ur Leukocyte Esterase Negative (Negative) Urine WBC (Auto) 1-5 (0-5) /hpf Urine RBC (Auto) 0-4 (0-4) /hpf U Hyaline Cast (Auto) 1-5 (0-5) /lpf U Epithel Cells (Auto) >30 H (0-5) /lpf Urine Bacteria (Auto) Negative (Negative) Blood Type Antibody Screen 04/23/20 04/23/20 Range/Units 06:07 06:07 WBC 15.05 H (4.8-10.8) K/uL RBC 3.78 L (4.2-5.4) M/uL Hgb 11.0 L (12.0-16.0) g/dL Hct 33.9 L (37-47) % MCV 89.7 (80-100) fL MCH 29.1 (25-34) pg MCHC 32.4 (32-36) g/dL RDW Std Deviation 46.9 H (36.4-46.3) fL RDW Coeff of Trina 14.2 (11.5-14.5) % Plt Count 237 (130-400) K/uL MPV 10.6 H (7.4-10.4) fL Immature Gran % (Auto) % Neut % (Auto) % Lymph % (Auto) % [place] % (Auto) % Eos % (Auto) % Baso % (Auto) % Neut # (Auto) (1.4-6.5) K/uL Lymph # (Auto) (1.2-3.4) K/uL [place] # (Auto) (0.11-0.59) K/uL Eos # (Auto) (0-0.5) K/uL Baso # (Auto) (0-0.2) K/uL Immature Gran # (Auto) (0.00-0.02) K/uL PT (9.0-12.0) Seconds INR (0.9-1.1) APTT (21.0-31.0) Seconds PTT Ratio Sodium 141 (136-145) mmol/L Potassium 4.5 (3.5-5.1) mmol/L Chloride 111 H (98-107) mmol/L Carbon Dioxide 25 (21-32) mmol/L Anion Gap 5.0 (3-11) BUN 17 (7-18) mg/dl Creatinine 0.82 (0.6-1.2) mg/dl Est Cr Clr Drug Dosing 66.9 ml/min Est GFR ( Amer) 84.6 Est GFR (Non-Af Amer) 73.0 BUN/Creatinine Ratio 20.9 H (10-20) Glucose 145 H (70-99) mg/dl Estimat Average Glucose mg/dl Hemoglobin A1c (4.5-5.6) % Calcium 8.6 (8.5-10.1) mg/dl Albumin (3.4-5.0) gm/dl Urine Color Urine Appearance (Clear) Urine pH (4.5-7.5) Ur Specific [place] (1.000-1.030) Urine Protein (Negative) Urine Glucose (UA) (Negative) Urine Ketones (Negative) Urine Blood (Negative) Urine Nitrite (Negative) Urine Bilirubin (Negative) Urine Urobilinogen (Negative) Ur Leukocyte Esterase (Negative) Urine WBC (Auto) (0-5) /hpf Urine RBC (Auto) (0-4) /hpf U Hyaline Cast (Auto) (0-5) /lpf U Epithel Cells (Auto) (0-5) /lpf Urine Bacteria (Auto) (Negative) Blood Type Antibody Screen
--- NOTE | 2020-04-23 09:07 | Hospitalist Progress Note ---
Date of Service April 23, 2020 Assessment & Plan (1) Primary osteoarthritis of right knee: S/P R TKA by Dr. Mccabe POD #1 EBL 20 ml pt tolerated procedure well Pain/wound management per Ortho Activity and therapy as directed by Ortho Encourage incentive spirometry Monitor H&H, preop 14.3 and 44.6 (2) Anemia: H/H 11.0 and 33.9 pre op 14.3 and 44.6 likely 2/2 to acute blood loss and dilutional (3) Hypertension: BP controlled continue lisinopril and atenolol parameters placed monitor (4) GERD (gastroesophageal reflux disease): continue PPI (5) DVT prophylaxis: ASA BID per ortho Disposition: per primary Follow up: PCP Shahana Hollins PA-C upon discharge Pt was seen and examined in collaboration with Dr. Martinez, please see addendum Thank you for this consultation. We will follow the patient with you during their hospital stay. You can reach a member of the [place] Hospitalist Team 26/03 via pager @ [phone]. Admission and Anticipated Discharge Date Admission Date: April 22, 2020 Supervising Physician Co-Signing Physician Notes Attending addendum The patient was seen and examined in medical floor She is status post a right total knee arthroplasty Complains today of some pain and swelling of the right knee Denies any other symptoms On examination No distress at rest Hemodynamically stable Chest-clear to auscultate bilaterally Heart-S1-S2, regular Abdomen-benign Extremities-trace edema on the right side, none on the left Her labs and imaging studies reviewed Agree with assessment and plan as outlined above by KETURAH Fonseca DR Subjective Patient was seen and examined in room 316-1. S/p R TKA POD #1. Overall feeling well. "I wish I could move my bowels." She is complaining of generalized mild abdominal discomfort, and is passing flatus. Denies f/c/s, chest pain, sob, n/v/d. She is urinating with out difficulty. No current complaints of pain. Review of Systems Review of Systems: All systems reviewed & are unremarkable except as noted in HPI & below Physical Exam Physical Exam: Gen: WD/WN, F, sitting up in bed, NAD, A&O x3 HEENT: Normocephalic, atraumatic, conjunctivae moist, sclerae anicteric, mucous membranes moist. Lung: Clear to Auscultation bilaterally, no wheezes/rales/rhonchi Heart: Regular rate, regular rhythm, no murmurs, rubs, or gallops Abdomen: Soft, NT, ND +BS x 4 Extremities: trace RLE edema, R TKA Dressing CDI, NVI distally Skin: Warm, no rash, negative turgor. Results & Data Results & Data ([facility]) Vital Signs (Past 12 Hours) Vital Signs Temp Pulse Resp BP Pulse Ox 04/23/20 08:19 36.3 C L 61 18 130/80 99 04/23/20 03:04 36.8 C 73 16 104/64 94 04/22/20 23:12 36.7 C 70 16 113/69 94 Laboratory Results Short CBC 04/23/20 Range/Units 06:07 WBC 15.05 H (4.8-10.8) K/uL Hgb 11.0 L (12.0-16.0) g/dL Hct 33.9 L (37-47) % Plt Count 237 (130-400) K/uL BMP 04/23/20 06:07 Sodium 141 Potassium 4.5 Chloride 111 H Carbon Dioxide 25 BUN 17 Creatinine 0.82 Glucose 145 H Calcium 8.6 Medications Administered Acetaminophen (Acetaminophen 500 Mg Tab) 1,000 mg PO Q8 CHELI Stop: 05/22/20 13:59 Last Admin: 04/23/20 05:52 Dose: 1,000 mg Documented by: [id number] Admin: 04/22/20 22:39 Dose: 1,000 mg Documented by: [id number] Admin: 04/22/20 13:33 Dose: 1,000 mg Documented by: [id number] Aspirin (Aspirin 81 Mg Ectab) 81 mg PO BID CHELI Stop: 05/22/20 20:59 Last Admin: 04/22/20 20:40 Dose: 81 mg Documented by: [id number] Celecoxib (Celebrex 200 Mg Cap) 200 mg PO BID CHELI Stop: 05/22/20 20:59 Last Admin: 04/22/20 20:40 Dose: 200 mg Documented by: [id number] Docusate Sodium (Docusate Sodium 100 Mg Cap) 100 mg PO BID CHELI Stop: 05/22/20 20:59 Last Admin: 04/22/20 20:40 Dose: 100 mg Documented by: [id number] Lisinopril (Lisinopril 20 Mg Tab) 20 mg PO PM CHELI Stop: 05/22/20 20:59 Last Admin: 04/22/20 20:47 Dose: Not Given Documented by: [id number] Magnesium Hydroxide (Magnesium Hydroxide Susp 30 Ml Udc) 30 ml PO Q6H PRN PRN Reason: Constipation Stop: 05/22/20 10:58 Last Admin: 04/23/20 04:27 Dose: 30 ml Documented by: [id number] Ondansetron HCl (Ondansetron Inj 2 Mg/Ml 2 Ml Vial) 4 mg IV Q6H PRN PRN Reason: Nausea And Vomiting Stop: 05/22/20 10:58 Last Admin: 04/22/20 19:27 Dose: 4 mg Documented by: [id number] Oxycodone HCl (Oxycodone Hcl Ir 5 Mg Tab (Immediate Release)) 5 - 10 mg PO Q4H PRN PRN Reason: Pain or Pre PT Stop: 05/06/20 10:58 Last Admin: 04/22/20 19:27 Dose: 5 mg Documented by: [id number] Pantoprazole Sodium (Pantoprazole 40 Mg Tab) 40 mg PO PM CHELI; Protocol Stop: 05/22/20 20:59 Last Admin: 04/22/20 20:41 Dose: 40 mg Documented by: [id number] Sennosides (Senna 8.6 Mg Tab) 17.2 mg PO HS CHELI Stop: 05/22/20 20:59 Last Admin: 04/22/20 20:39 Dose: 17.2 mg Documented by: [id number] Discontinued Medications Acetaminophen (Acetaminophen 500 Mg Tab) 1,000 mg PO PREOP CHELI Stop: 04/22/20 18:00 Last Admin: 04/22/20 05:52 Dose: 1,000 mg Documented by: [id number] Bacitracin (Bacitracin Inj 50,000 Unit Vial) Confirm Administered Dose 50,000 units .ROUTE .STK-MED ONE Stop: 04/22/20 07:04 Last Admin: 04/22/20 09:33 Dose: 50,000 units Documented by: [id number] Celecoxib (Celebrex 200 Mg Cap) 200 mg PO PREOP CHELI Stop: 04/22/20 18:00 Last Admin: 04/22/20 05:53 Dose: 200 mg Documented by: [id number] Dexamethasone (Dexamethasone 4 Mg Tab) 8 mg PO PREOP CHELI Stop: 04/22/20 18:00 Last Admin: 04/22/20 05:54 Dose: 8 mg Documented by: [id number] Famotidine (Famotidine 20 Mg Tab) 20 mg PO PREOP CHELI Stop: 04/22/20 18:00 Last Admin: 04/22/20 05:54 Dose: 20 mg Documented by: [id number] Gabapentin (Gabapentin 300 Mg Cap) 300 mg PO PREOP CHELI Stop: 04/22/20 18:00 Last Admin: 04/22/20 05:53 Dose: 300 mg Documented by: [id number] Lactated Ringer's (Lr) 1,000 mls @ 15 mls/hr IV .Q24H CHELI Stop: 04/22/20 18:00 Last Infusion: 04/22/20 08:08 Dose: 0 mls/hr Documented by: [id number] Admin: 04/22/20 05:42 Dose: 15 mls/hr Documented by: [id number] Clindamycin Phosphate (Cleocin) 600 mg in 54 mls @ 100 mls/hr IV PREOP CHELI Stop: 04/23/20 05:59 Last Infusion: 04/22/20 11:13 Dose: 0 mls/hr Documented by: [id number] Admin: 04/22/20 08:08 Dose: 100 mls/hr Documented by: [id number] Tranexamic Acid (Tranexamic Acid / 0.7% Nacl) 1,000 mg in 100 mls @ 600 mls/hr IV TODAY@0600 [facility] Stop: 04/22/20 18:00 Last Infusion: 04/22/20 11:10 Dose: 0 mls/hr Documented by: [id number] Admin: 04/22/20 07:53 Dose: 600 mls/hr Documented by: [id number] Tranexamic Acid (Tranexamic Acid / 0.7% Nacl) 1,000 mg in 100 mls @ 600 mls/hr IV TODAY@0600 [facility] Stop: 04/22/20 18:00 Last Infusion: 04/22/20 11:10 Dose: 0 mls/hr Documented by: [id number] Admin: 04/22/20 09:32 Dose: 600 mls/hr Documented by: [id number] Ropivacaine 150 mg/Bupivacaine HCl 30 ml/Epinephrine HCl 0.15 mg/Ketorolac Tromethamine 30 mg/Dexamethasone 4 mg/ Ketamine HCl 10 mg/ Clonidine HCl 100 mcg/ Sodium Chloride 93.35 mls @ 0 mls/hr INSTIL PREOP CHELI Stop: 04/22/20 12:00 Last Admin: 04/22/20 09:33 Dose: 93.4 mls/hr Documented by: [id number] Sodium Chloride (Nss 1000ml) 1,000 mls @ 100 mls/hr IV .Q10H CHELI Stop: 04/23/20 06:00 Last Infusion: 04/23/20 05:56 Dose: 0 mls/hr Documented by: [id number] Admin: 04/22/20 20:37 Dose: 100 mls/hr Documented by: [id number] Infusion: 04/22/20 20:37 Dose: 100 mls/hr Documented by: [id number] Admin: 04/22/20 12:13 Dose: 100 mls/hr Documented by: [id number] Vancomycin HCl 1,500 mg/ (Sodium Chloride) 530 mls @ 125 mls/hr IV TODAY@2100 CHELI Stop: 04/23/20 01:15 Last Infusion: 04/23/20 00:44 Dose: 0 mls/hr Documented by: [id number] Admin: 04/22/20 20:38 Dose: 125 mls/hr Documented by: [id number] Metoclopramide HCl (Metoclopramide Hcl 10 Mg Tablet) 10 mg PO PREOP CHELI Stop: 04/22/20 18:00 Last Admin: 04/22/20 05:54 Dose: 10 mg Documented by: [id number] Oxycodone HCl (Oxycodone Hcl 10 Mg Tabcr (Oxycontin)) 10 mg PO PREOP CHELI Stop: 04/22/20 18:00 Last Admin: 04/22/20 05:53 Dose: 10 mg Documented by: [id number]
[2020-04-23] MEDS: DOCUSATE SODIUM 100 MG CAP PO SCH ×2 (09:09→21:00)
[2020-04-23] MEDS: MULTIVITAMIN TAB PO SCH (09:09)
[2020-04-23] MEDS: ATENOLOL 50 MG TABLET PO SCH (09:09)
[2020-04-23] MEDS: CeleBREX 200 MG CAP PO SCH ×2 (09:10→21:00)
[2020-04-23] MEDS: ASPIRIN 81 MG ECTAB PO SCH ×2 (09:10→20:59)
[2020-04-23] MEDS: OXYCODONE HCL IR 5 MG TAB (IMMEDIATE RELEASE) PO PRN ×3 (11:24→22:33)
[2020-04-23] MEDS: HYDROmorphone INJ 0.5 MG/0.5 ML SYR IV PRN (20:53)
[2020-04-23] MEDS: lisinopriL 20 MG TAB PO SCH (20:59)
[2020-04-23] MEDS: PANTOprazole 40 MG TAB PO SCH (21:00)
[2020-04-23] MEDS: SENNA 8.6 MG TAB PO SCH (21:00)
[2020-04-24] MEDS: HYDROmorphone INJ 0.5 MG/0.5 ML SYR IV PRN (01:24)
[2020-04-24] MEDS: OXYCODONE HCL IR 5 MG TAB (IMMEDIATE RELEASE) PO PRN (05:17)
[2020-04-24] MEDS: ACETAMINOPHEN 500 MG TAB PO SCH ×2 (05:19→13:17)
[2020-04-24] MEDS: DOCUSATE SODIUM 100 MG CAP PO SCH (07:28)
[2020-04-24] MEDS: ATENOLOL 50 MG TABLET PO SCH (07:33)
[2020-04-24] MEDS: MULTIVITAMIN TAB PO SCH (07:34)
[2020-04-24] MEDS: CeleBREX 200 MG CAP PO SCH (07:34)
[2020-04-24] MEDS: ASPIRIN 81 MG ECTAB PO SCH (07:34)
[2020-04-24] MEDS ORDERED: HYDROCODONE/ACETAMOPHEN 5/325MG TAB PO PRN (08:27)
[2020-04-24] MEDS ORDERED: KETOROLAC 30 MG/ML VIAL IV ONE (08:45)
--- NOTE | 2020-04-24 09:13 | Orthopedic Progress Note ---
Date of Service April 24, 2020 Assessment & Plan (1) Primary osteoarthritis of right knee: POD#2 Right TKA -Pain management -discontinue oxycodone and try [place]. 1 dose of Toradol added. We will recheck her later this morning to see how her pain control is. -PT/OT -DVT prophylaxis-SCDs, TEDs, [id number] bid -D/C planning-home with HHPT Admission and Anticipated Discharge Date Admission Date: April 22, 2020 Subjective Postop day 2 Patient sitting up in bed awake and alert. She is having pain control issues this morning. She states that anyway she moves to her right lower extremity causes moderate to severe pain in her right knee. She did not have any pain yesterday which we discussed was likely due to her blocks that she had from surgery. She has had oxycodone as well as hydromorphone. She denies shortness of breath, chest pain, lightheadedness. She has multiple concerns about blood clots and how she is going to get around in her home. We discussed changing her pain medications around a little bit to see if that would help. Physical Exam Physical Exam: Moni is clean, dry, and intact. Functioning well. Calves are soft nontender. Neurovascular intact. Toes are mobile. Results & Data ([facility]) Vital Signs (Past 12 Hours) Vital Signs Temp Pulse Resp BP BP Pulse Ox 04/24/20 07:33 118/79 04/24/20 06:29 36.5 C 68 16 106/71 97 04/23/20 23:35 36.6 C 57 L 18 128/82 95
[2020-04-24 09:38] LABS: Basophils # (auto) 0.01 K/uL (0-0.2); Basophils % (auto) 0.1 %; Eosinophils % (auto) 0.8 %; Hematocrit (blood only) 34.8 % (37-47); Hemoglobin 11.3 g/dL (12.0-16.0); Immature Granulocytes # (auto) 0.03 K/uL (0.00-0.02); Immature Granulocytes % (auto) 0.2 %; Lymphocytes # (auto) 1.72 K/uL (1.2-3.4); Lymphocytes % (auto) 13.9 %; Mean Corpuscular Hemoglobin 29.1 pg (25-34); Mean Corpuscular Hgb Conc 32.5 g/dL (32-36); Mean Corpuscular Volume 89.7 fL (80-100); Mean Platelet Volume 10.5 fL (7.4-10.4); Monocytes # (auto) 1.17 K/uL (0.11-0.59); Monocytes % (auto) 9.5 %; Neutrophils # (auto) 9.33 K/uL (1.4-6.5); Neutrophils % (auto) 75.5 %; Platelet Count 232 K/uL (130-400); RDW Coefficient of Variation 15.1 % (11.5-14.5); RDW Standard Deviation 48.9 fL (36.4-46.3); Red Blood Count 3.88 M/uL (4.2-5.4); White Blood Count 12.36 K/uL (4.8-10.8)
[2020-04-24 09:58] LABS: BUN Creatinine Ratio 29.6 (10-20); Calcium 8.6 mg/dl (8.5-10.1); Creatinine Clr Calc Pharmacy 63.1 ml/min; Est GFR (African American) 78.8
--- NOTE | 2020-04-24 14:59 | Hospitalist Progress Note ---
Date of Service April 24, 2020 Assessment & Plan (1) Primary osteoarthritis of right knee: S/P R TKA by Dr. Mccabe POD #2 EBL 20 ml pt tolerated procedure well Will likely be discharged this afternoon Pain/wound management per Ortho Activity and therapy as directed by Ortho Encourage incentive spirometry Monitor H&H, preop 14.3 and 44.6 CBC and CRP remain stable (2) Anemia: H/H 11.0 and 33.9 pre op 14.3 and 44.6 likely 2/2 to acute blood loss and dilutional (3) Hypertension: BP controlled continue lisinopril and atenolol parameters placed monitor (4) GERD (gastroesophageal reflux disease): continue PPI (5) DVT prophylaxis: ASA BID per ortho Disposition: per primary Follow up: PCP Shahana Hollins PA-C upon discharge Medically stable to be discharged Admission and Anticipated Discharge Date Admission Date: April 22, 2020 Subjective 04/24/2020 Patient is seen and examined in medical Status post right knee arthroplasty, POD #2 Complains some pain especially with movement but wants to go home Review of Systems Review of Systems: All systems reviewed and are unremarkable except as noted below Physical Exam Physical Exam: Gen: WD/WN, F, sitting up in bed, NAD, A&O x3 HEENT: Normocephalic, atraumatic, conjunctivae moist, sclerae anicteric, mucous membranes moist. Lung: Clear to Auscultation bilaterally, no wheezes/rales/rhonchi Heart: Regular rate, regular rhythm, no murmurs, rubs, or gallops Abdomen: Soft, NT, ND +BS x 4 Extremities: trace RLE edema, R TKA Dressing CDI, NVI distally Skin: Warm, no rash, negative turgor. Right lower extremity: Right knee is swollen and bandaged Movement is moderately painful Results & Data Results & Data ([facility]) Vital Signs (Past 12 Hours) Vital Signs Temp Pulse Resp BP BP Pulse Ox 04/24/20 07:33 118/79 04/24/20 06:29 36.5 C 68 16 106/71 97 Laboratory Results Short CBC 04/24/20 Range/Units 09:23 WBC 12.36 H (4.8-10.8) K/uL Hgb 11.3 L (12.0-16.0) g/dL Hct 34.8 L (37-47) % Plt Count 232 (130-400) K/uL BMP 04/24/20 09:23 Sodium 141 Potassium 4.0 Chloride 111 H Carbon Dioxide 28 BUN 26 H D Creatinine 0.87 Glucose 120 H Calcium 8.6
--- NOTE | 2020-04-25 14:39 | Discharge Summary ---
Date of Service April 25, 2020 Admission HPI Per Admitting Provider Patient is a 70 year old female with PMHx significant for HTN and breast Ca who presents with longstanding right knee pain. She is unable to carry out her normal daily activity due to pain. She has failed conservative measures including cortisone injections, viscoelastic injections, and NSAIDs. She would like to proceed with right knee replacement. Patient denies headaches, sweats, fevers, chills, double vision, blurred vision, cough, sore throat, dysphagia, chest pain, sob, wheezing, n/v/d/c, numbness, tingling, fatigue, urinary symptoms, mood disorders. ROS positive for right knee pain and stiffness. Admission Exam Per Admitting Provider Constitutional: well developed and well nourished; no acute distress Eyes: PERRL, conjunctivae normal, anicteric sclerae ENMT: external ear and nose normal, oropharynx normal Neck: trachea midline, no thyromegaly Respiratory: normal respiratory effort, lungs clear to auscultation Cardiovascular: RRR, no murmur, no edema Musculoskeletal: Right knee: ROM 0-130, mild effusion. Tenderness medial joint line. Stable to valgus and varus stress, positive Freedom's Skin: no rashes, warm and dry Neurologic: patellar DTR's 2+ bilat, sensation intact Psychiatric: A+Ox3, euthymic affect Principal Diagnosis Right knee osteoarthritis Discharge Exam Constitutional well developed and well nourished; no acute distress Eyes PERRL, conjunctivae normal, anicteric sclerae ENMT external ear and nose normal, oropharynx normal Neck trachea midline, no thyromegaly Respiratory normal respiratory effort, lungs clear to auscultation Cardiovascular RRR, no murmur, no edema Skin no rashes, warm and dry Neurologic patellar DTR's 2+ bilat, sensation intact Psychiatric A+Ox3, euthymic affect Discharge Data Allergies Allergy/AdvReac Type Severity Reaction Status Date / Time Penicillins Allergy Hives Verified 04/22/20 05:36 Consultations 04/19/20 17:16 Consult Hospitalist Routine 04/22/20 10:59 Consult Case Management - Discharge Planning Routine Procedures Performed Operation Date: 04/22/20 07:50 Actual Procedures p Right Total Knee Arthroplasty(Right) - Johan Mccabe MD Ordered Studies 04/22/20 05:00 US - OR guided needle placemen Routine Hospital Course (1) Primary osteoarthritis of right knee: Patient presented for same day admission following right total knee arthroplasty on . She tolerated procedure well. The Patient had an uneventful hospital course. Post-operatively, her activity was progressed and well tolerated. They participated in PT with ambulation distance of 325 feet. ROM of operative knee reached 100 degrees. Labs remained stable- lowest he moglobin recorded:11.0. Dr. Kodi Andrade of medical service was consulted for medical management during admission. Pain controlled on oral medications. Please refer to daily progress notes and PT notes for complete details. After exam on 04/24/20, patient was felt to be stable for discharge home with home heatl PT. Patient will f/u in the office in about 2 weeks for further evaluation including x-rays and incision check, sooner if having any issues or concerns. Lab Results 03/22/20 03/22/20 03/22/20 Range/Units 13:42 13:42 13:42 WBC 7.34 (4.8-10.8) K/uL RBC 5.01 (4.2-5.4) M/uL Hgb 14.3 (12.0-16.0) g/dL Hct 44.6 (37-47) % MCV 89.0 (80-100) fL MCH 28.5 (25-34) pg MCHC 32.1 (32-36) g/dL RDW Std Deviation 46.5 H (36.4-46.3) fL RDW Coeff of Trina 14.2 (11.5-14.5) % Plt Count 286 (130-400) K/uL MPV 11.0 H (7.4-10.4) fL Immature Gran % (Auto) 0.1 % Neut % (Auto) 67.9 % Lymph % (Auto) 22.1 % [place] % (Auto) 8.2 % Eos % (Auto) 1.6 % Baso % (Auto) 0.1 % Neut # (Auto) 4.98 (1.4-6.5) K/uL Lymph # (Auto) 1.62 (1.2-3.4) K/uL [place] # (Auto) 0.60 H (0.11-0.59) K/uL Eos # (Auto) 0.12 (0-0.5) K/uL Baso # (Auto) 0.01 (0-0.2) K/uL Immature Gran # (Auto) 0.01 (0.00-0.02) K/uL PT 10.3 (9.0-12.0) Seconds INR 1.0 (0.9-1.1) APTT 27.6 (21.0-31.0) Seconds PTT Ratio 1.0 Sodium (136-145) mmol/L Potassium (3.5-5.1) mmol/L Chloride (98-107) mmol/L Carbon Dioxide (21-32) mmol/L Anion Gap (3-11) BUN (7-18) mg/dl Creatinine (0.6-1.2) mg/dl Est Cr Clr Drug Dosing ml/min Est GFR ( Amer) Est GFR (Non-Af Amer) BUN/Creatinine Ratio (10-20) Glucose (70-99) mg/dl Estimat Average Glucose mg/dl Hemoglobin A1c (4.5-5.6) % Calcium (8.5-10.1) mg/dl Albumin (3.4-5.0) gm/dl Urine Color Urine Appearance (Clear) Urine pH (4.5-7.5) Ur Specific [place] (1.000-1.030) Urine Protein (Negative) Urine Glucose (UA) (Negative) Urine Ketones (Negative) Urine Blood (Negative) Urine Nitrite (Negative) Urine Bilirubin (Negative) Urine Urobilinogen (Negative) Ur Leukocyte Esterase (Negative) Urine WBC (Auto) (0-5) /hpf Urine RBC (Auto) (0-4) /hpf U Hyaline Cast (Auto) (0-5) /lpf U Epithel Cells (Auto) (0-5) /lpf Urine Bacteria (Auto) (Negative) Hepatitis C Ab Screen (Neg) Blood Type O Positive Antibody Screen NEGATIVE 03/22/20 03/22/20 03/22/20 Range/Units 13:42 13:42 13:42 WBC (4.8-10.8) K/uL RBC (4.2-5.4) M/uL Hgb (12.0-16.0) g/dL Hct (37-47) % MCV (80-100) fL MCH (25-34) pg MCHC (32-36) g/dL RDW Std Deviation (36.4-46.3) fL RDW Coeff of Trina (11.5-14.5) % Plt Count (130-400) K/uL MPV (7.4-10.4) fL Immature Gran % (Auto) % Neut % (Auto) % Lymph % (Auto) % [place] % (Auto) % Eos % (Auto) % Baso % (Auto) % Neut # (Auto) (1.4-6.5) K/uL Lymph # (Auto) (1.2-3.4) K/uL [place] # (Auto) (0.11-0.59) K/uL Eos # (Auto) (0-0.5) K/uL Baso # (Auto) (0-0.2) K/uL Immature Gran # (Auto) (0.00-0.02) K/uL PT (9.0-12.0) Seconds INR (0.9-1.1) APTT (21.0-31.0) Seconds PTT Ratio Sodium 143 (136-145) mmol/L Potassium 4.2 (3.5-5.1) mmol/L Chloride 110 H (98-107) mmol/L Carbon Dioxide 28 (21-32) mmol/L Anion Gap 5.0 (3-11) BUN 17 (7-18) mg/dl Creatinine 0.76 (0.6-1.2) mg/dl Est Cr Clr Drug Dosing 72.2 ml/min Est GFR ( Amer) 92.8 Est GFR (Non-Af Amer) 80.0 BUN/Creatinine Ratio 22.4 H (10-20) Glucose 98 (70-99) mg/dl Estimat Average Glucose 120 mg/dl Hemoglobin A1c 5.8 H (4.5-5.6) % Calcium 9.6 (8.5-10.1) mg/dl Albumin 3.7 (3.4-5.0) gm/dl Urine Color Dark Yellow Urine Appearance Turbid A (Clear) Urine pH 5.0 (4.5-7.5) Ur Specific [place] 1.030 (1.000-1.030) Urine Protein Negative (Negative) Urine Glucose (UA) Negative (Negative) Urine Ketones Negative (Negative) Urine Blood Negative (Negative) Urine Nitrite Negative (Negative) Urine Bilirubin Negative (Negative) Urine Urobilinogen Negative (Negative) Ur Leukocyte Esterase Negative (Negative) Urine WBC (Auto) 1-5 (0-5) /hpf Urine RBC (Auto) 0-4 (0-4) /hpf U Hyaline Cast (Auto) 1-5 (0-5) /lpf U Epithel Cells (Auto) >30 H (0-5) /lpf Urine Bacteria (Auto) Negative (Negative) Hepatitis C Ab Screen (Neg) Blood Type Antibody Screen 04/23/20 04/23/20 04/23/20 Range/Units 06:07 06:07 06:07 WBC 15.05 H (4.8-10.8) K/uL RBC 3.78 L (4.2-5.4) M/uL Hgb 11.0 L (12.0-16.0) g/dL Hct 33.9 L (37-47) % MCV 89.7 (80-100) fL MCH 29.1 (25-34) pg MCHC 32.4 (32-36) g/dL RDW Std Deviation 46.9 H (36.4-46.3) fL RDW Coeff of Trina 14.2 (11.5-14.5) % Plt Count 237 (130-400) K/uL MPV 10.6 H (7.4-10.4) fL Immature Gran % (Auto) % Neut % (Auto) % Lymph % (Auto) % [place] % (Auto) % Eos % (Auto) % Baso % (Auto) % Neut # (Auto) (1.4-6.5) K/uL Lymph # (Auto) (1.2-3.4) K/uL [place] # (Auto) (0.11-0.59) K/uL Eos # (Auto) (0-0.5) K/uL Baso # (Auto) (0-0.2) K/uL Immature Gran # (Auto) (0.00-0.02) K/uL PT (9.0-12.0) Seconds INR (0.9-1.1) APTT (21.0-31.0) Seconds PTT Ratio Sodium 141 (136-145) mmol/L Potassium 4.5 (3.5-5.1) mmol/L Chloride 111 H (98-107) mmol/L Carbon Dioxide 25 (21-32) mmol/L Anion Gap 5.0 (3-11) BUN 17 (7-18) mg/dl Creatinine 0.82 (0.6-1.2) mg/dl Est Cr Clr Drug Dosing 66.9 ml/min Est GFR ( Amer) 84.6 Est GFR (Non-Af Amer) 73.0 BUN/Creatinine Ratio 20.9 H (10-20) Glucose 145 H (70-99) mg/dl Estimat Average Glucose mg/dl Hemoglobin A1c (4.5-5.6) % Calcium 8.6 (8.5-10.1) mg/dl Albumin (3.4-5.0) gm/dl Urine Color Urine Appearance (Clear) Urine pH (4.5-7.5) Ur Specific [place] (1.000-1.030) Urine Protein (Negative) Urine Glucose (UA) (Negative) Urine Ketones (Negative) Urine Blood (Negative) Urine Nitrite (Negative) Urine Bilirubin (Negative) Urine Urobilinogen (Negative) Ur Leukocyte Esterase (Negative) Urine WBC (Auto) (0-5) /hpf Urine RBC (Auto) (0-4) /hpf U Hyaline Cast (Auto) (0-5) /lpf U Epithel Cells (Auto) (0-5) /lpf Urine Bacteria (Auto) (Negative) Hepatitis C Ab Screen Neg (Neg) Blood Type Antibody Screen 04/24/20 04/24/20 Range/Units 09:23 09:23 WBC 12.36 H (4.8-10.8) K/uL RBC 3.88 L (4.2-5.4) M/uL Hgb 11.3 L (12.0-16.0) g/dL Hct 34.8 L (37-47) % MCV 89.7 (80-100) fL MCH 29.1 (25-34) pg MCHC 32.5 (32-36) g/dL RDW Std Deviation 48.9 H (36.4-46.3) fL RDW Coeff of Trina 15.1 H (11.5-14.5) % Plt Count 232 (130-400) K/uL MPV 10.5 H (7.4-10.4) fL Immature Gran % (Auto) 0.2 % Neut % (Auto) 75.5 % Lymph % (Auto) 13.9 % [place] % (Auto) 9.5 % Eos % (Auto) 0.8 % Baso % (Auto) 0.1 % Neut # (Auto) 9.33 H (1.4-6.5) K/uL Lymph # (Auto) 1.72 (1.2-3.4) K/uL [place] # (Auto) 1.17 H (0.11-0.59) K/uL Eos # (Auto) 0.10 (0-0.5) K/uL Baso # (Auto) 0.01 (0-0.2) K/uL Immature Gran # (Auto) 0.03 H (0.00-0.02) K/uL PT (9.0-12.0) Seconds INR (0.9-1.1) APTT (21.0-31.0) Seconds PTT Ratio Sodium 141 (136-145) mmol/L Potassium 4.0 (3.5-5.1) mmol/L Chloride 111 H (98-107) mmol/L Carbon Dioxide 28 (21-32) mmol/L Anion Gap 2.0 L (3-11) BUN 26 H D (7-18) mg/dl Creatinine 0.87 (0.6-1.2) mg/dl Est Cr Clr Drug Dosing 63.1 ml/min Est GFR ( Amer) 78.8 Est GFR (Non-Af Amer) 68.0 BUN/Creatinine Ratio 29.6 H (10-20) Glucose 120 H (70-99) mg/dl Estimat Average Glucose mg/dl Hemoglobin A1c (4.5-5.6) % Calcium 8.6 (8.5-10.1) mg/dl Albumin (3.4-5.0) gm/dl Urine Color Urine Appearance (Clear) Urine pH (4.5-7.5) Ur Specific [place] (1.000-1.030) Urine Protein (Negative) Urine Glucose (UA) (Negative) Urine Ketones (Negative) Urine Blood (Negative) Urine Nitrite (Negative) Urine Bilirubin (Negative) Urine Urobilinogen (Negative) Ur Leukocyte Esterase (Negative) Urine WBC (Auto) (0-5) /hpf Urine RBC (Auto) (0-4) /hpf U Hyaline Cast (Auto) (0-5) /lpf U Epithel Cells (Auto) (0-5) /lpf Urine Bacteria (Auto) (Negative) Hepatitis C Ab Screen (Neg) Blood Type Antibody Screen Total Time Total Time Spent Total Time Spent (In Minutes): 20 Discharge Plan Discharge Items Patient Disposition: Home - Home Health Services Reason For Visit: Osteoarthritis, Right Knee Discharge Diagnosis: Osteoarthritis right knee Activity: Per Instructions section Weightbearing: Right weightbearing Weightbearing Comment: As tolerated with walker Non-emergency contact: Surgeon Call non-emergency contact if: your pain is not controlled, your temperature is above 101.5, your wound has increased redness and your wound has increased drainage Follow-up/Referrals: Shahana Hollins PA-C [Primary Care Provider] - Diet: Regular Addtl Attending Provider Instructions: Do not use Biofreeze on your right knee wound ACTIVITY RECOMMENDATIONS: SELF CARE INSTRUCTIONS AFTER TOTAL KNEE REPLACEMENT A. You may need to continue a physical therapy program after discharge from the hospital. There are several options available to you. Your doctor will assist you in selecting the best one for you. 1. An out-patient facility 2 to 3 times a week for therapy or home therapy. 2. Continue working on all exercises taught to you in the hospital. Your goals should be to increase bending of your knee to 90 degrees and beyond and to fully straighten your knee. B. You may progress at your own pace from walking with a walker or crutches to a cane; then to no assistive devices. C. Make walking a part of your daily routine. Be up as much as comfortable with rest periods throughout the day. Rest with leg elevation is very important. Use the ice wrap frequently for the first 3-4 weeks. D. There are no restrictions on activities. 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 E. Wear the long elastic stockings (IAN hose) 20 hours a day for 2 weeks after surgery. They can be removed several times a day for laundering and for a bath. F. You may shower, no tub baths until cleared by your doctor. SPECIAL CARE INSTRUCTIONS: VERY IMPORTANT TO READ AND REVIEW A. There are a few signs you need to watch for after you are home. Call [facility] if you notice any of the followin. Increased severe knee pain. Some pain is expected especially when you exercise. 2. Increased swelling in your leg or knee; pain or swelling of the calf muscle in either lower leg. 3. Any fluid drainage from the incision. 4. Shortness of breath or chest pain. B. Please call [facility] at if you have any concerns or questions about your operation or recovery. The doctor or his nurse will return your call promptly. C. You must take antibiotics before dental work, bladder, bowel or other surgery. Your doctor will provide you with a permanent care to carry describing this precaution. IMPORTANT: * REMEMBER TO TAKE ASPIRIN, 81 MG, TWICE DAILY FOR 4 WEEKS UNLESS OTHERWISE DIRECTED. THIS IS YOUR BLOOD THINNER. * HIGH RISK PATIENTS MAY BE PRESCRIBED A STRONGER BLOOD THINNER. THIS WILL BE PROVIDED AT DISCHARGE. * CALL IF INCREASED PAIN, REDNESS, DRAINAGE OR FEVER GREATER THAT 101. * WEAR IAN HOSE 20 HOURS PER DAY FOR 2 WEEKS. This is a large suction dressing covering your incision. This will help pull any excess drainage from the wound and allow your incision to heal properly. You may shower with this if you can keep the unit outside of the shower. If any bleeding or leakage is noted please call your doctor's office. This will remain on your incision for 7 days and then should be removed. This can be done yourself or by the home nursing staff if applicable. The entire unit is disposable once removed. Once removed, keep incision clean and dry. If redness or drainage is noted, please call your surgeon. FOLLOW UP VISIT: If appointment is not already scheduled: Please call [facility] to make a follow-up appointment for 2 weeks after your surgery at . Stand-Alone Forms: My [employer], Smoking Cessation Medications and DC Order Prescriptions: New aspirin 81 mg Tablet,Delayed Release (Dr/Ec) 81 mg PO BID 30 Days Qty: 60 RF: 0 acetaminophen 500 mg Tablet 1,000 mg PO Q8 14 Days Qty: 84 RF: 0 Continued rizatriptan 10 mg Tablet 10 mg PO DIRECTED PRN (Reason: Migraine Headache) RF: 0 lisinopril 40 mg Tablet 20 mg PO PM RF: 0 atenolol 50 mg Tablet 50 mg PO QAM RF: 0 omeprazole magnesium [Prilosec OTC] 20 mg Tablet,Delayed Release (Dr/Ec) 20 mg PO PM RF: 0 Biofreeze (menthol) 4 % Gel 1 applic TOPICAL BID PRN (Reason: Pain) RF: 0 Discontinued acetaminophen [Tylenol] 325 mg Tablet 325 mg PO BID PRN (Reason: Pain) RF: 0 Discharge Orders: Discharge Order (Routine); Ordered 04/24/20 Ordered By: Kayden Lea/Other Patient Handouts: DVT Post Op Prevention Admission Data Admit Date/Time: 04/22/20 10:24 Attending Provider: Johan Mccabe Admit Provider: Johan Mccabe Primary Care Provider: Shahana Hollins Other Providers: Halima Martinez ; Chaitanya,Home Health Other Interventions: Discharge Summary Assessment (RN) Last Done: 04/24/20 13:00
== END 2020-04-24 13:48 | disposition home health service (06) | DRG 470 ==
LOC: ASU 04:59 → 3E 10:24

== ENCOUNTER 2021-03-16 06:14 | Observation (INO) ==
--- NOTE | 2021-02-11 12:32 | PAT Medication Instructions ---
Medication Instructions Date of Service February 11, 2021 Home Medications Biofreeze (menthol) 1 applic TOPICAL BID PRN omeprazole magnesium [Prilosec OTC] 20 mg PO PM rizatriptan 10 mg PO DIRECTED PRN ascorbic acid (vitamin C) [Vitamin C] 500 mg PO DAILY atenolol 50 mg PO QAM cholecalciferol (vitamin D3) [Vitamin D3] 25 mcg PO DAILY lisinopril 20 mg PO Q OTHER DAY STOP taking 24 hours before surgery Biofreeze (menthol) 1 applic TOPICAL BID PRN DO NOT take the morning of surgery ascorbic acid (vitamin C) [Vitamin C] 500 mg PO DAILY cholecalciferol (vitamin D3) [Vitamin D3] 25 mcg PO DAILY lisinopril 20 mg PO Q OTHER DAY Take morning of surgery With a small sip of water, OTHERWISE NOTHING TO EAT OR DRINK AFTER MIDNIGHT: rizatriptan 10 mg PO DIRECTED PRN (if needed) atenolol 50 mg PO QAM Take evening before surgery omeprazole magnesium [Prilosec OTC] 20 mg PO PM rizatriptan 10 mg PO DIRECTED PRN (if needed) Other Notes If you have any questions please call us at [phone] or [phone] or [phone] or [phone]
--- NOTE | 2021-02-16 08:39 | Anesthesiology Consultation ---
Date of Service February 16, 2021 Assessment & Plan (1) Encounter for pre-operative examination: - COVID screening: Per assessment on 02/16: Travel screen negative, no known COVID-19 positive contacts or current COVID-19 related symptoms. Patient vaccinated. Surgeon arranging preop COVID testing (scheduled 03/14; [facility]). Awaiting results. - LUE limb restriction s/p lumpectomy - Preop testing: EKG/CXR done 03/22/20. Patient aware that if surgery ends up being postponed, would likely need to update EKG/CXR given they are close to one year old. Patient aware/agreeable if needed and does not wish to update at PAT visit today. - S/P Right TKA (04/22/20): SAB at L3/L4 (x1 attempt) + PNB at [facility] Chart Review Chart Review: Acceptable Risk for Surgery and Patient seen in Pre Admission Testing History Surgery Operation Date: 03/16/21 13:05 Proposed Procedures p Left Knee Knee Arthroplasty - Reinier Farias MD Height/Weight Height: 5 ft Weight: 95.2 kg Allergies Allergy/AdvReac Type Severity Reaction Status Date / Time Penicillins Allergy Hives Verified 01/28/21 08:32 Medications Home Medications Medication Instructions Recorded Confirmed Last Taken Biofreeze (menthol) 1 applic TOPICAL BID PRN 03/15/20 01/28/21 04/08/20 omeprazole magnesium [Prilosec OTC] 20 mg PO PM 03/15/20 01/28/21 04/19/20 rizatriptan 10 mg PO DIRECTED PRN 03/15/20 01/28/21 04/21/20 09:00 ascorbic acid (vitamin C) [Vitamin 500 mg PO DAILY 01/28/21 01/28/21 Unknown C] atenolol 50 mg PO QAM 01/28/21 01/28/21 Unknown cholecalciferol (vitamin D3) 25 mcg PO DAILY 01/28/21 01/28/21 Unknown [Vitamin D3] lisinopril 20 mg PO Q OTHER DAY 01/28/21 01/28/21 Unknown Celebrex 1 tab PO DAILY 02/16/21 02/16/21 Unknown Past Medical History Medical History Deviated septum Suspected per patient 2/2 difficulty with breathing from right nostril GERD (gastroesophageal reflux disease) controlled HX: breast cancer Left (Dx 2012) s/p XRT > LUE limb restriction s/p lumpectomy Hypertension Migraine Morbid obesity with BMI of 40.0-44.9, adult Osteoarthritis Exercise / Class Metabolic Activity III < 4 Walking/Shop/Light housework Past Family History Family History Sister Cerebral aneurysm, Onset Age: 26 Other No family history of adverse response to anesthesia Past Surgical History Surgical History History of arthroplasty of right knee Right TKA (04/22/20): SAB at L3/L4 (x1 attempt) + PNB at [facility] History of bilateral tubal ligation History of colonoscopy History of esophagogastroduodenoscopy (EGD) History of lumpectomy of left breast History of tooth extraction Past Anesthesia History No Family Hx of Anesthesia Complications and Other Post po pain management after Right TKA History of PONV No Hx of PONV and No Hx of Motion Sickness Social History Smoking Status: Never smoker Do You Dip or Chew Tobacco: No Hx Alcohol Use: No Hx Substance Use: No substance use type: does not use Review of Systems Patient denies chest pain, shortness of breath, fever, chills, cough, wheezing, palpitations. Physical Exam Vital Signs VITALS BP 139/81 P 65 TEMP 98.1 SP02 97%RA RESP 16 PHYSICAL Full cervical extension range of motion. Full TMJ range of motion. TMD 3 finger breaths Mallampati Score 3 Dentition: several cemented in upper teeth Lungs: clear throughout to auscultation Cardiac: regular rate and rhythm, no murmurs noted Spine: normal Carotid arteries: negative bruit Extremities: no edema Lab Results Anesthesia Preop Results Results Anesthesia Widget: WBC 7.48 K/uL (4.8-10.8) 02/16/21 Hgb 14.6 g/dL (12.0-16.0) 02/16/21 Hct 44.2 % (37-47) 02/16/21 Plt 264 K/uL (130-400) 02/16/21 Na 142 mmol/L (136-145) 02/16/21 K 4.6 mmol/L (3.5-5.1) 02/16/21 Cl 110 mmol/L (98-107) H 02/16/21 CO2 26 mmol/L (21-32) 02/16/21 BUN 20 mg/dl (7-18) H 02/16/21 Creat 0.70 mg/dl (0.6-1.2) 02/16/21 Glucose Level 121 mg/dl (70-99) H 02/16/21 PT 9.5 Seconds (9.0-12.0) 02/16/21 PTT 25.4 Seconds (21.0-31.0) 02/16/21 INR 0.9 (0.9-1.1) 02/16/21 HA1c 5.6 % (4.5-5.6) 02/16/21 Urine Color Dark Yellow 02/16/21 Urine Appearance Clear (Clear) 02/16/21 Urine pH 5.0 (4.5-7.5) 02/16/21 Urine Specific Spring 1.032 (1.000-1.030) H 02/16/21 Urine Protein Negative (Negative) 02/16/21 Urine Glucose (UA) Negative (Negative) 02/16/21 Urine Ketones Trace (Negative) H 02/16/21 Urine Blood Negative (Negative) 02/16/21 Urine Nitrite Negative (Negative) 02/16/21 Urine Bilirubin Negative (Negative) 02/16/21 Urine Urobilinogen Negative (Negative) 02/16/21 Urine Leukocyte Esterase Negative (Negative) 02/16/21 Blood Type O Positive 02/16/21 Antibody Screen NEGATIVE 02/16/21 Testing Electrocardiogram Date: 03/22/20 Findings: + NSR @ (62) Chest X-Ray Date: 03/22/20 Findings: + NAD and + cardiomegaly (mild) Mild elevation the right hemidiaphragm. Stress Test Date: 12/01/16 Type: exercise (ECHO) Resting EF: 63% Resting LV Function: normal Resting RWMA: + none Valvular Disease: AI (mild) Exercise ECHO is normal without resting LV wall motion abnormalities or inducible ischemia. Stress EKG response normal. MPHR= 86%. 5 METS achieved. No significant arrhythmias. Mild concentric LVH. Grade I diastolic dysfunction. Moderately enlarged LA.
--- NOTE | 2021-03-13 20:53 | History & Physical Report ---
Date of Service March 13, 2021 Assessment & Plan (1) Primary osteoarthritis of left knee: Treatment options discussed. She has failed conservative measures as above. Risks, benefits and alternatives to surgery including but not limited to infection, DVT, pain, stiffness, need for revision surgery, damage to blood vessels, damage to nerves, PE, , were discussed with the patient and they wish to proceed. Plan will be for left total knee arthroplasty at [facility] on 03/16/21. Will plan on ASA 81mg BID x 1 mo for DVT prophylaxis, home with home health PT upon discharge. All questions answered. F/u post operatively. History of Present Illness Chief Complaint: Left knee pain Primary Care Provider: Shahana Hollins Patient is a 70 year old female with PMHx significant for HTN and breast Ca who presents with longstanding left knee pain. She is unable to carry out her normal daily activity due to pain. She has failed conservative measures including cortisone injections, viscoelastic injections, and NSAIDs, and therapy. She would like to proceed with left knee replacement. Previously has had right knee replaced and has done well. Patient denies headaches, sweats, fevers, chills, double vision, blurred vision, cough, sore throat, dysphagia, chest pain, sob, wheezing, n/v/d/c, numbness, tingling, fatigue, urinary symptoms, mood disor ders. ROS positive for left knee pain and stiffness. Allergies Allergy/AdvReac Type Severity Reaction Status Date / Time Penicillins Allergy Hives Verified 01/28/21 08:32 Home Medications Medication Instructions Recorded Confirmed Type Biofreeze (menthol) 1 applic TOPICAL BID PRN 03/15/20 01/28/21 History omeprazole magnesium [Prilosec OTC] 20 mg PO PM 03/15/20 01/28/21 History rizatriptan 10 mg PO DIRECTED PRN 03/15/20 01/28/21 History ascorbic acid (vitamin C) [Vitamin 500 mg PO DAILY 01/28/21 01/28/21 History C] atenolol 50 mg PO QAM 01/28/21 01/28/21 History cholecalciferol (vitamin D3) 25 mcg PO DAILY 01/28/21 01/28/21 History [Vitamin D3] lisinopril 20 mg PO Q OTHER DAY 01/28/21 01/28/21 History Celebrex 1 tab PO DAILY 02/16/21 02/16/21 History Past Med/Surg History Medical History Deviated septum Suspected per patient 2/2 difficulty with breathing from right nostril GERD (gastroesophageal reflux disease) controlled HX: breast cancer Left (Dx 2013) s/p XRT > LUE limb restriction s/p lumpectomy Hypertension Migraine Morbid obesity with BMI of 40.0-44.9, adult Osteoarthritis Surgical History History of arthroplasty of right knee Right TKA (04/22/20): SAB at L3/L4 (x1 attempt) + PNB at [facility] History of bilateral tubal ligation History of colonoscopy History of esophagogastroduodenoscopy (EGD) History of lumpectomy of left breast History of tooth extraction Family History Sister Cerebral aneurysm, Onset Age: 26 Other No family history of adverse response to anesthesia Social History Smoking Status: Never smoker Second Hand Exposure: No; Hx Alcohol Use: No Hx Substance Use: No Preferred Language: Nepalese Communication Ability: Effective Porcelain Mixer Required: No Beliefs That Will Affect Care: None marital status: Current Living Situation: Spouse Feels Safe at Home: Yes Assistive Devices: Cane and Glasses Review of Systems All systems reviewed & are unremarkable except as noted in HPI & below Physical Exam Constitutional: well developed and well nourished; no acute distress Eyes: PERRL, conjunctivae normal, anicteric sclerae ENMT: external ear and nose normal, oropharynx normal Neck: trachea midline, no thyromegaly Respiratory: normal respiratory effort, lungs clear to auscultation Cardiovascular: RRR, no murmur, no edema Musculoskeletal: Left knee: Varus alignment. Painful ROM 0-120 degrees, stable to valgus and varus stress. Mild to moderate effusion. Mild crepitation. Positive Freedom's Skin: no rashes, warm and dry Neurologic: patellar DTR's 2+ bilat, sensation intact Psychiatric: A+Ox3, euthymic affect Results & Data ([facility]) Diagnostic Findings X-rays of the left knee, four views, demonstrate she has a varus knee. She is bone on bone in the medial compartment. There is subluxation of the femur medially on the tibia. She has tricompartmental osteophytes. There is subchondral sclerosis. The patella is centrally aligned but fairly large medial femoral condylar and patellofemoral osteophytes
[~2021-03-16 06:14] MED LIST: ACETAMINOPHEN 500 MG TAB PO SCH; CeleBREX 200 MG CAP PO SCH; FAMOTIDINE 20 MG TAB PO SCH; GABAPENTIN 300 MG CAP PO SCH; LR 500ML BOLUS, THEN 15ML/HR IV SCH; METOCLOPRAMIDE HCL 10 MG TABLET PO SCH; ROPIVACAINE 0.5% HCL/PF 150 MG, BUPIVACAINE 0.75% MPF 20 ML, EPINEPHrine 30MG/30ML (OR ... INFIL SCH; TRANEXAMIC ACID 1,000 MG **IV Intra-op IV SCH; TRANEXAMIC ACID 1,000 MG **IV Pre-op IV SCH; VANCOMYCIN HCL 1,500 MG in SODIUM CHLORIDE 0.9% 500 ML IV SCH; dexAMETHasone 4 MG TAB PO SCH
[2021-03-16] MEDS ORDERED: BUPIVACAINE 0.5 % 5 MG/1 ML PF 10ML VIAL ONE (06:30)
[2021-03-16] MEDS ORDERED: ROPIVACAINE 0.5% 5 MG/ML 30 ML VIAL ONE (06:30)
[2021-03-16] MEDS ORDERED: EPINEPHrine INJ 1 MG/ML AMP ONE (06:30)
[2021-03-16] MEDS ORDERED: HYDROmorphone INJ 1 MG/ML SYRINGE IV PRN (07:32)
[2021-03-16] MEDS ORDERED: PHENYLEPHRINE 100MCG/ML 5ML SYR IV PRN (07:32)
[2021-03-16] MEDS ORDERED: LABETALOL HCL IV 5 MG/ML 20ML IV PRN (07:32)
[2021-03-16] MEDS ORDERED: ONDANSETRON INJ 2 MG/ML 2 ML VIAL IV PRN ×2 (07:32→14:09)
[2021-03-16] MEDS ORDERED: ATROPINE SULFATE 0.1 MG/ML 10ML SYR IV PRN (07:32)
[2021-03-16] MEDS ORDERED: fentaNYL citrate 100 MCG/2 ML VIAL IV PRN (07:32)
[2021-03-16] MEDS ORDERED: ePHEDrine sulfate 50 MG/ML AMP IV PRN (07:32)
[2021-03-16] MEDS ORDERED: CLINDAMYCIN 600 MG/54 ML D5W IV ONE (08:42)
[2021-03-16] MEDS ORDERED: LIDOCAINE 2% 2 ML VIAL/AMP(20MG/ML) INFIL ONE (08:47)
[2021-03-16] MEDS ORDERED: fentaNYL citrate 100 MCG/2 ML VIAL ONE (08:47)
[2021-03-16] MEDS ORDERED: MIDAZOLAM HCL 1 MG/ML 2ML VIAL ONE ×2 (08:47→09:44)
[2021-03-16] MEDS ORDERED: PROPOFOL IV EMULSION 10 MG/ML 20 ML VIAL IV ONE ×2 (08:47→10:56)
--- NOTE | 2021-03-16 09:02 | History & Physical Bridge Note ---
Date of Service March 16, 2021 History & Physical Bridge Note I have examined the patient, reviewed the History & Physical and in the interval since the performance of the History & Physical I have noted the following changes of clinical significance: no changes noted
[2021-03-16] MEDS ORDERED: ORTHO JOINT ANESTHETIC ONE (09:16)
--- NOTE | 2021-03-16 11:30 | Operative Report ---
Post Operative Report Pre & Post Diagnosis Operation Date: 03/16/21 09:35 Pre-Op Diagnosis: Unilateral Primary Osteoarthritis, Left Knee Post-Op Diagnosis: Unilateral Primary Osteoarthritis, Left Knee I identified the patient and participated in the time-out.: Yes Procedure Operation Date: 03/16/21 09:35 Actual Procedures p Left Total Knee Arthroplasty(Left), superficial wound VAC- Reinier Farias MD Surgeon Reinier Farias MD Community Engagement Specialist Arsh SUAREZ Estimated Blood Loss 5 Findings Consistent with Post-Op Diagnosis Specimens Bone cuts Drains 2 Hemovac Anesthesia Type MAC Spinal Regional Complications none Disposition Disposition: Recovery Room Indications 71-year-old female with progressive osteoarthritis her left knee failed conservative management. Status post prior successful right knee replacement. Description of Procedure The patient was taken to the operating room and anesthetized under spinal MAC regional block. Patient was placed supine on the the operating table. A pneumatic tourniquet was placed about the left upper thigh. The knee exam demonstrated moderate obesity of the thigh full range of motion varus knee moderate effusion medial and patellofemoral crepitation. The involved leg was elevated exsanguinated with Esmarch bandage and the pneumatic tourniquet was raised to 325 millimeters mercury. A longitudinal incision was made across the anterior knee. Skin flaps were elevated. An incision was made into the medial retinaculum and extended up into the mid third of the quadriceps tendon and extended down to the tibial tubercle. Intra-articular findings demonstrated patellofemoral medial compartment osteoarthritis. Medial patellofemoral joint was grade 4 osteoarthritis and medial compartment was grade 4 [id number] osteoarthritis and there were multiple loose bodies in the posterior medial joint posterior to the femoral condyle. The knee was exposed by excising cruciate ligaments and menisci and all the multiple loose bodies. The infrapatellar fat pad was resected. The fat pad over the anterior femur at the upper aspect of the articular surface was resected for placement of the component in that area. A subperiosteal peel lateral release was performed around the patella The [employer]hew journey 2.0 posterior stabilized total knee arthroplasty system was utilized for the procedure. The custom femoral cutting guide was pinned in position. The distal femoral cut was made. The size 3, 5 in 1 cutting block was placed. The anterior posterior and chamfer cuts were made. The knee was extended and a free hand cut technique was performed to the patella. The patella with was measured and the width was reproduced using a 29 symmetrical patella component. 3 drill holes are made for the patella component pegs. The tibia was then subluxed. The custom tibial cutting block was pinned in position and the proximal tibial cut was made with the oscillating saw. The size 2 tibial trial was externally rotated in line with the tibial tubercle and pinned in position. The punch for the stem was used. The femoral trial was inserted and centered the notch cutting devices were used and the collet was placed. Tibial trials were used for the insert. The size 15 trial gave balanced ligaments through full range of motion. Patella tracking was assessed with range of motion. The patella tracked centrally. The trials were removed. The Orthomix anesthetic cocktail was injected per protocol. The cut bone surfaces and soft tissue were copiously irrigated with pulsatile lavage saline solution. The final components were cemented with Simplex cement. The final components were Mor[employer]hew journey 2.0 posterior stabilized size 3 left femoral component, 2 left tibial component, 15 mm posterior stabilized tibial insert, 29 symmetrical patella. After the cement cured the Betadine soak was used per protocol. the knee was copiously irrigated with pulsatile lavage saline solution. 2 drains were brought out laterally connected to Hemovac. The quadriceps tendon and medial retinaculum were closed with interrupted [id number] #1 Vicryl sutures. The knee was taken through full range of motion and repair was secure. There was 0 through 140 degrees range of motion. The subcutaneous tissues were closed with 2-0 Vicryl sutures. The skin was closed with sarah. A superficial wound VAC was applied. The tourniquet was let down and the patient had good capillary refill to the extremity. The patient tolerated the procedure well. My physician annette Proctor assisted in the procedure including leg positioning soft tissue retraction instrument management and assisted in the closure , superficial wound VAC application and will participate in postoperative care the patient. I attest to the content of the Intraoperative Record and any orders documented therein. Any exceptions are noted below.
--- NOTE | 2021-03-16 13:08 | XRay Report ---
LEFT KNEE 2 VIEWS History: Left total knee arthroplasty. Degenerative arthritis. Postop. FINDINGS: The patient is status post a left total knee arthroplasty. The hardware is intact. No fract ure or dislocation. Skin sarah and surgical drains are in place. IMPRESSION: Left total knee arthroplasty. No evidence for hardware complication. ACT 112: Negative or not required by law. Electronically signed by: Scar Ackerman M.D. 03/16/2021 1:06 PM
--- NOTE | 2021-03-16 13:39 | Anesthesiology Progress Note ---
Date of Service March 16, 2021 Anesthesia Post Procedure Vital Signs Vital Signs: Temp Pulse Pulse Resp BP Pulse Ox 03/16/21 13:30 73 20 135/93 98 03/16/21 13:15 70 23 134/84 97 03/16/21 13:00 72 20 124/81 94 03/16/21 12:45 36.9 C 69 18 123/89 94 03/16/21 12:35 71 20 127/86 99 03/16/21 12:25 69 16 120/93 97 03/16/21 12:14 37.1 C 76 19 116/68 97 03/16/21 07:55 37.0 C 55 L 20 175/98 H 97 03/16/21 07:19 37.2 C 65 22 154/99 H 96 Pain Intensity Left Knee: Pain Intensity: 3 Head: Pain Intensity: 3 Transfer of Care Handoff Completed per policy Notes Mental Status: alert / awake / arousable Patient Amnestic to Procedure: Yes Nausea / Vomiting: adequately controlled Pain: adequately controlled Airway Patency, RR, SpO2: stable & adequate BP & HR: stable & adequate Hydration State: stable & adequate Neuraxial Anesthesia: was administered and sensory block is resolving Anesthetic Complications: no major complications apparent and Pt Satisfied with anesthetic care
[2021-03-16] MEDS ORDERED: RIZATRIPTAN BENZOATE 10 MG TAB PO PRN (14:09)
[2021-03-16] MEDS ORDERED: bisacodyL 10 MG SUPP PR PRN (14:09)
[2021-03-16] MEDS ORDERED: HYDROmorphone INJ 0.5 MG/0.5 ML SYR IV PRN (14:09)
[2021-03-16] MEDS ORDERED: oxyCODONE HCL IR 5 MG TAB (IMMEDIATE RELEASE) PO PRN (14:09)
[2021-03-16] MEDS ORDERED: NALOXONE HCL 0.4 MG/1 ML VIAL/CARP IV PRN (14:09)
[2021-03-16] MEDS ORDERED: METOCLOPRAMIDE HCL INJ 5 MG/ML 2 ML VIAL IV PRN (14:09)
[2021-03-16] MEDS ORDERED: MAGNESIUM HYDROXIDE SUSP 30 ML UDC PO PRN (14:09)
--- NOTE | 2021-03-16 14:11 | Consultation ---
Date of Consultation March 16, 2021 Assessment & Plan (1) Osteoarthritis of left knee: (2) Status post total knee replacement, left: Status post left total knee arthroscopy by Dr. Farias, POD #0 Tolerated procedure well EBL: 5 mL Pain/wound management per orthopedics Activity and therapy as prescribed orthopedics Encourage incentive spirometry and wean oxygen as able Monitor hemoglobin, preop 14 (3) Hypertension: Blood pressure mildly elevated postoperatively On atenolol as outpatient Patient previously also on lisinopril 20 mg daily, she states she was taken off of it after last knee replacement 1 year ago secondary to weight loss and no longer needing it; however as she gradually put weight back on her blood pressure increased and she restarted lisinopril on her own. She was told to not take her lisinopril prior to the procedure so she has been off of it for the past 1 or 2 weeks. Monitor blood pressure closely and if continues to be elevated to resume lisinopril (4) Migraine: Give rizatriptan x1 now Consider magnesium if it does not improve Encourage fluid intake (5) GERD (gastroesophageal reflux disease): Continue PPI (6) DVT prophylaxis: SCD/teds ASA twice daily Dispo: Per primary PCP: Shahana Hollins FULL CODE Patient was seen and examined in collaboration with Dr. Hoover, please see addendum Thank you for this consultation. We will follow the patient with you during their hospital stay. You can reach a member of the [facility] Hospitalist Team 26/03 via hospitalist role on tiger text. Supervising Physician Co-Signing Physician Notes Pt was seen and examined. Agreed with KETURAH Coughlin exam, assessment and plan. 71-year-old female who has significant past medical history of HTN, migraines, history of left breast CA, fatty liver, osteoarthritis, GERD, obesity, failed conservative management, s/p elective left total knee arthroplasty by Dr. Farias. No postop complication. Continue incentive spirometry. Continue pain management. Will monitor H/H. Continue PT/OT eval. Fall precaution. Will Continue monitor closely. MD Sneha History of Present Illness Requesting Physician: Dr. Farias Reason for Consultation: Postop medical management Attending Physician: Reinier Farias MD History of Present Illness This is a 71-year-old female who has significant past medical history of HTN, migraines, history of left breast CA, fatty liver, osteoarthritis, GERD, obesity who presents for elective left total knee arthroplasty by Dr. Farias. She tolerated the procedure well. Approximately 1 year ago she had a right total knee arthroplasty performed. Shortly after waking up from anesthesia she complains of right-sided frontal headache with associated photophobia and phonophobia. She has history of migraine, but has not had one for quite some time. She states this feels similar. She occasionally gets aura and currently does not have one. She also feels the stress of the procedure has brought on the headache. She denies any change in vision, change in hearing or dizziness. She does occasionally take rizatriptan for migraines. She denies fever, chills, sweats, lightheadedness, dizziness, chest pain, shortness of breath, nausea, vomiting, abdominal pain. She continues to be under the effects of anesthesia and therefore has minimal feeling to lower extremities. Prior to procedure she denied difficulty with passing urine or moving her bowels. Of significance she does have history of hypertension which is controlled in outpatient setting on atenolol. She previously has been on lisinopril as well but has been off of it for the past 2 weeks as she was told not to take it prior to procedure. Allergies Allergy/AdvReac Type Severity Reaction Status Date / Time Penicillins Allergy Hives Verified 03/16/21 06:54 Home Medications Medication Instructions Recorded Confirmed Type menthol 4 % topical gel (Biofreeze 1 applic TOPICAL BID PRN 03/15/20 03/16/21 History (menthol)) omeprazole magnesium 20 mg 20 mg PO PM 03/15/20 03/16/21 History tablet,delayed release (Prilosec OTC) rizatriptan 10 mg tablet 10 mg PO DIRECTED PRN 03/15/20 03/16/21 History ascorbic acid (vitamin C) 500 mg 500 mg PO DAILY 01/28/21 03/16/21 History tablet (Vitamin C) atenolol 25 mg tablet 50 mg PO QAM 01/28/21 03/16/21 History cholecalciferol (vitamin D3) 25 25 mcg PO DAILY 01/28/21 03/16/21 History mcg (1,000 unit) tablet (Vitamin D3) acetaminophen 500 mg tablet 1,000 mg PO Q8 #60 tab 03/17/21 Rx (Tylenol Extra Strength) aspirin 81 mg tablet,delayed 81 mg PO BID #60 tab 03/17/21 Rx release celecoxib 200 mg capsule (Celebrex) 200 mg PO BID #60 cap 03/17/21 Rx oxycodone 5 mg tablet 5 - 10 mg PO .Q4h-6h PRN #30 tab 03/17/21 Rx MDD 6 Patient History Medical History (Updated 03/16/21 @ 14:36 by Madyson Husain PA-C) Deviated septum Suspected per patient 2/2 difficulty with breathing from right nostril GERD (gastroesophageal reflux disease) controlled HX: breast cancer Left (Dx 2012) s/p XRT > LUE limb restriction s/p lumpectomy Hypertension Migraine Morbid obesity with BMI of 40.0-44.9, adult Osteoarthritis Surgical History (Updated 03/16/21 @ 14:17 by Madyson Husain PA-C) History of arthroplasty of right knee Right TKA (04/22/20): SAB at L3/L4 (x1 attempt) + PNB at [facility] History of bilateral tubal ligation History of colonoscopy History of esophagogastroduodenoscopy (EGD) History of lumpectomy of left breast History of tooth extraction Family History Sister Cerebral aneurysm, Onset Age: 26 Other No family history of adverse response to anesthesia Social History Smoking Status: Never smoker Second Hand Exposure: No; Do You Dip or Chew Tobacco: No; Tobacco Cessation Education Requested by Patient: No Hx Alcohol Use: No Hx Substance Use: No Preferred Language: Yoruba Communication Ability: Effective Spray Foam Installer Required: No Beliefs That Will Affect Care: None marital status: Current Living Situation: Spouse Other Information That Helps Us Care for You: No Feels Safe at Home: Yes Safety Concerns: Feels Safe At This Time Assistive Devices: Walker Review of Systems Review of Systems: All systems reviewed & are unremarkable except as noted in HPI & below Physical Exam Physical Exam: Constitutional: WD/WN, vitals as above, NAD but appears anxious, sitting up in bed, pleasant, conversing easily Head: Normocephalic, Atraumatic Eyes: PERRL, conjunctivae normal, anicteric sclerae ENMT: external ear and nose normal, oropharynx normal Neck: trachea midline, no thyromegaly normal visual inspection Respiratory: normal respiratory effort, lungs clear to auscultation, no wheeze, rales, rhonchi. Normal insp/exp effort, no accessory muscle use Cardiovascular: RRR, no murmur, no edema Vessels: no JVD or carotid bruit Chest: normal inspection of chest Abdomen: normal bowel sounds, soft, nontender, no hepatosplenomegaly Musculoskeletal: no cyanosis or clubbing, b/l upper ext AROM x 2, b/l lower ext NVI distally, dressing to L TKA CDI Skin: no rashes, warm and dry normal turgor Neurologic: PERRL, EOMI, accommodation nl, no face palsy, no dysarthria CN's II-XI intact bilaterally and moves all extremities Psychiatric: A+Ox3, euthymic affect Lymphatic: no cervical or axillary lymphadenopathy : deferred Results & Data ([facility]) Vital Signs (Past 12 Hours) Vital Signs Temp Pulse Pulse Resp BP Pulse Ox 03/16/21 13:30 73 20 135/93 98 03/16/21 13:15 70 23 134/84 97 03/16/21 13:00 72 20 124/81 94 03/16/21 12:45 36.9 C 69 18 123/89 94 03/16/21 12:35 71 20 127/86 99 03/16/21 12:25 69 16 120/93 97 03/16/21 12:14 37.1 C 76 19 116/68 97 03/16/21 07:55 37.0 C 55 L 20 175/98 H 97 03/16/21 07:19 37.2 C 65 22 154/99 H 96 Laboratory Results Preoperative lab work done on 02/21/2021 CBC: H&H 14.0 and 42.9, WBC 7, platelet 273 Chemistry: Sodium 143, K4.6, chloride 108, BUN 15, creatinine 0.7 Hemoglobin A1c on 02/16/2021 5.6 Diagnostic Findings Knee X-Ray 03/16/21 12:24 LEFT KNEE 2 VIEWS History: Left total knee arthroplasty. Degenerative arthritis. Postop. FINDINGS: The patient is status post a left total knee arthroplasty. The hardware is intact. No fracture or dislocation. Skin sarah and surgical drains are in place. IMPRESSION: Left total knee arthroplasty. No evidence for hardware complication. ACT 112: Negative or not required by law. Electronically signed by: Scar Ackerman M.D. 03/16/2021 1:06 PM Medications Administered Medication List Acetaminophen (Acetaminophen 500 Mg Tab) 1,000 mg PO PREOP CHELI Stop: 03/16/21 18:00 Last Admin: 03/16/21 07:15 Dose: 1,000 mg Documented by: [id number] Celecoxib (Celebrex 200 Mg Cap) 200 mg PO PREOP CHELI Stop: 03/16/21 18:00 Last Admin: 03/16/21 07:15 Dose: 200 mg Documented by: [id number] Dexamethasone (Dexamethasone 4 Mg Tab) 8 mg PO PREOP CHELI Stop: 03/16/21 18:00 Last Admin: 03/16/21 07:15 Dose: 8 mg Documented by: [id number] Famotidine (Famotidine 20 Mg Tab) 20 mg PO PREOP CHELI Stop: 03/16/21 18:00 Last Admin: 03/16/21 07:16 Dose: 20 mg Documented by: [id number] Fentanyl Citrate (Fentanyl Citrate 100 Mcg/2 Ml Vial) 25 mcg IV Q5M PRN PRN Reason: PACU Use Only-Pain Stop: 03/16/21 15:32 Last Admin: 03/16/21 13:19 Dose: 25 mcg Documented by: [id number] Gabapentin (Gabapentin 300 Mg Cap) 300 mg PO PREOP CHELI Stop: 03/16/21 18:00 Last Admin: 03/16/21 07:15 Dose: 300 mg Documented by: [id number] Lactated Ringer's (Lr) 1,000 mls @ 15 mls/hr IV .Q24H CHELI Stop: 03/16/21 18:00 Last Infusion: 03/16/21 09:32 Dose: 0 mls/hr Documented by: [id number] Admin: 03/16/21 07:14 Dose: 15 mls/hr Documented by: [id number] Vancomycin HCl 1,500 mg/ (Sodium Chloride) 530 mls @ 200 mls/hr IV PREOP CHELI Stop: 03/16/21 18:00 Last Admin: 03/16/21 07:14 Dose: 200 mls/hr Documented by: [id number] Tranexamic Acid (Tranexamic Acid / 0.7% Nacl) 1,000 mg in 100 mls @ 600 mls/hr IV TODAY@0600 PENDING SALE TO [facility] Stop: 03/16/21 18:00 Last Infusion: 03/16/21 09:20 Dose: 0 mls/hr Documented by: [id number] Admin: 03/16/21 09:10 Dose: 600 mls/hr Documented by: [id number] Tranexamic Acid (Tranexamic Acid / 0.7% Nacl) 1,000 mg in 100 mls @ 600 mls/hr IV TODAY@0600 PENDING SALE TO [facility] Stop: 03/16/21 18:00 Last Admin: 03/16/21 11:12 Dose: 600 mls/hr Documented by: [id number] Metoclopramide HCl (Metoclopramide Hcl 10 Mg Tablet) 10 mg PO PREOP PENDING SALE TO [facility] Stop: 03/16/21 18:00 Last Admin: 03/16/21 07:15 Dose: 10 mg Documented by: [id number] Discontinued Medications Clindamycin Phosphate (Clindamycin 600 Mg/54 Ml D5w) Confirm Administered Dose 600 mg IV .STK-MED ONE Stop: 03/16/21 08:43 Last Admin: 03/16/21 09:32 Dose: 600 mg Documented by: [id number] Ropivacaine 150 mg/Bupivacaine HCl 20 ml/Epinephrine HCl 0.15 mg/Ketorolac Tromethamine 30 mg/Dexamethasone 4 mg/ Ketamine HCl 10 mg/ Clonidine HCl 100 mcg/ Sodium Chloride 88.35 mls @ 0 mls/hr INFIL TODAY@0600 PENDING SALE TO [facility]; Protocol Stop: 03/16/21 06:01 Last Admin: 03/16/21 11:38 Dose: 93.35 mls/hr Documented by: [id number] Miscellaneous (Ortho Joint Anesthetic ) Confirm Administered Dose 1 ea .ROUTE .STK-MED ONE Stop: 03/16/21 09:17 Last Admin: 03/16/21 11:13 Dose: Not Given Documented by: [id number] ECG Rate (beats per minute): 70 Rhythm: normal sinus
[2021-03-16] MEDS: SODIUM CHLORIDE 0.9% 1000ML 1,000 ML IV SCH (15:42)
[2021-03-16] MEDS: ACETAMINOPHEN 500 MG TAB PO SCH ×2 (15:43→21:38)
[2021-03-16] MEDS: CLINDAMYCIN 600 MG in DEXTROSE 5% 50 ML IV SCH (17:22)
[2021-03-16] MEDS ORDERED: PANTOprazole 40 MG TAB PO SCH (21:00)
[2021-03-16] MEDS ORDERED: SENNA 8.6 MG TAB PO SCH (21:00)
[2021-03-16] MEDS: DOCUSATE SODIUM 100 MG CAP PO SCH (21:36)
[2021-03-16] MEDS: ASPIRIN 81 MG ECTAB PO SCH (21:36)
[2021-03-16] MEDS: CeleBREX 200 MG CAP PO SCH (21:37)
[2021-03-17] MEDS: CLINDAMYCIN 600 MG in DEXTROSE 5% 50 ML IV SCH (01:23)
[2021-03-17] MEDS: SODIUM CHLORIDE 0.9% 1000ML 1,000 ML IV SCH (02:24)
[2021-03-17] MEDS: ACETAMINOPHEN 500 MG TAB PO SCH ×2 (05:42→15:22)
[2021-03-17 05:43] LABS: Hematocrit (blood only) 36.3 % (37-47); Hemoglobin 12.1 g/dL (12.0-16.0); Mean Corpuscular Hemoglobin 29.5 pg (25-34); Mean Corpuscular Hgb Conc 33.3 g/dL (32-36); Mean Corpuscular Volume 88.5 fL (80-100); Mean Platelet Volume 10.6 fL (7.4-10.4); Platelet Count 260 K/uL (130-400); RDW Coefficient of Variation 13.9 % (11.5-14.5); RDW Standard Deviation 45.3 fL (36.4-46.3); White Blood Count 15.94 K/uL (4.8-10.8)
[2021-03-17] MEDS ORDERED: CLINDAMYCIN 600 MG/54 ML BAG IV SCH (06:00)
[2021-03-17 06:08] LABS: BUN Creatinine Ratio 28.6 (10-20); Calcium 8.8 mg/dl (8.5-10.1); Creatinine Clr Calc Pharmacy 77.4 ml/min; Est GFR (African American) 102.2 ml/min; Est GFR (Non-African American) 88.2 ml/min; Potassium 4.1 mmol/L (3.5-5.1)
--- NOTE | 2021-03-17 06:35 | Orthopedic Progress Note ---
Date of Service March 17, 2021 Assessment & Plan (1) Status post total knee replacement, left: Plan: POD #1 left TKA -PT/OT -Pain management as written -A.m. labsleukocytosis, likely reactive. Hemoglobin 12.1 from 14.6 preopacute blood loss anemia likely due to surgical loss and dilutional effect -DVT prophylaxisSCDs, teds, ASA 81 mg twice daily -Discharge planningplan on discharge home with home health PT, likely tomorrow Admission and Anticipated Discharge Date Admission Date: March 16, 2021 Supervising Physician Co-Signing Physician Notes Patient seen and examined. Agree with DANIELA Proctor's note as above. Patient currently resting comfortably. Pain is controlled. She has been ambulating in the hallway. Planning for discharge home today. Subjective Patient is POD#1. She is resting in bed comfortably. Not having much pain. No other complaints. Denies chest pain, sob, dizziness, n/v/d. Review of Systems Review of Systems: All systems reviewed & are unremarkable except as noted in Subjective Physical Exam Physical Exam: Dressing to Left knee is clean dry and intact.There is no calf tenderness. Toes are mobile. Good dorsiflexion. Distally neurovascular status and sensation intact Constitutional: well developed and well nourished; no acute distress Results & Data ([facility]) Vital Signs (Past 12 Hours) Vital Signs Temp Pulse Resp BP Pulse Ox 03/17/21 03:47 37.1 C 75 16 116/71 94 03/16/21 22:11 36.4 C L 80 16 134/77 95 03/16/21 19:01 36.7 C 83 16 149/91 H 93
[2021-03-17] MEDS: DOCUSATE SODIUM 100 MG CAP PO SCH (08:43)
[2021-03-17] MEDS: ASPIRIN 81 MG ECTAB PO SCH (08:43)
[2021-03-17] MEDS: CeleBREX 200 MG CAP PO SCH (08:43)
[2021-03-17] MEDS ORDERED: CHOLECALCIFEROL 1,000 UNITS 25 MCG TAB PO SCH (09:00)
[2021-03-17] MEDS ORDERED: ATENOLOL 50 MG TABLET PO SCH (09:00)
[2021-03-17] MEDS ORDERED: ASCORBIC ACID 500 MG TAB PO SCH (09:00)
[2021-03-17] MEDS ORDERED: MULTIVITAMIN TAB PO SCH (09:00)
--- NOTE | 2021-03-18 07:28 | Discharge Summary ---
Date of Service March 18, 2021 Admission HPI Per Admitting Provider Patient is a 70 year old female with PMHx significant for HTN and breast Ca who presents with longstanding left knee pain. She is unable to carry out her normal daily activity due to pain. She has failed conservative measures including cortisone injections, viscoelastic injections, and NSAIDs, and therapy. She would like to proceed with left knee replacement. Previously has had right knee replaced and has done well. Patient denies headaches, sweats, fevers, chills, double vision, blurred vision, cough, sore throat, dysphagia, chest pain, sob, wheezing, n/v/d/c, numbness, tingling, fatigue, urinary symptoms, mood disorders. ROS positive for left knee pain and stiffness. Admission Exam Per Admitting Provider Constitutional: well developed and well nourished; no acute distress Eyes: PERRL, conjunctivae normal, anicteric sclerae ENMT: external ear and nose normal, oropharynx normal Neck: trachea midline, no thyromegaly Respiratory: normal respiratory effort, lungs clear to auscultation Cardiovascular: RRR, no murmur, no edema Musculoskeletal: Left knee: Varus alignment. Painful ROM 0-120 degrees, stable to valgus and varus stress. Mild to moderate effusion. Mild crepitation. Positive Freedom's Skin: no rashes, warm and dry Neurologic: patellar DTR's 2+ bilat, sensation intact Psychiatric: A+Ox3, euthymic affect Principal Diagnosis Left knee osteoarthritis Discharge Exam Constitutional well developed and well nourished; no acute distress Eyes PERRL, conjunctivae normal, anicteric sclerae ENMT external ear and nose normal, oropharynx normal Neck trachea midline, no thyromegaly Respiratory normal respiratory effort, lungs clear to auscultation Cardiovascular RRR, no murmur, no edema Skin no rashes, warm and dry Neurologic patellar DTR's 2+ bilat, sensation intact Psychiatric A+Ox3, euthymic affect Discharge Data Allergies Allergy/AdvReac Type Severity Reaction Status Date / Time Penicillins Allergy Hives Verified 03/16/21 06:54 Consultations 03/11/21 09:50 Consult Hospitalist Routine Procedures Performed Operation Date: 03/16/21 09:35 Actual Procedures p Left Total Knee Arthroplasty(Left) - Reinier Farias MD Ordered Studies 03/16/21 05:00 US - OR guided needle placemen Routine Hospital Course (1) Status post total knee replacement, left: Patient presented for same day admission following left total knee arthroplasty on 03/16/21. She tolerated procedure well. The Patient had an uneventful hospital course. Post-operatively, her activity was progressed and well tolerated. They participated in PT with ambulation distance of 290 feet. ROM of operative knee reached 90 degrees. Labs remained stable- lowest h emoglobin recorded: 12.1. The Medical service was consulted for medical management during admission. Pain controlled on oral medications. Please refer to daily progress notes and PT notes for complete details. After exam on 03/17/21, patient was felt to be stable for discharge home with home health PT. Patient will f/u in the office in about 2 weeks for further evaluation including x-rays and incision check, sooner if having any issues or concerns. Lab Results 03/16/21 03/16/21 03/17/21 Range/Units 06:49 06:49 05:33 WBC 15.94 H (4.8-10.8) K/uL RBC 4.10 L (4.2-5.4) M/uL Hgb 12.1 (12.0-16.0) g/dL Hct 36.3 L (37-47) % MCV 88.5 (80-100) fL MCH 29.5 (25-34) pg MCHC 33.3 (32-36) g/dL RDW Std Deviation 45.3 (36.4-46.3) fL RDW Coeff of Trina 13.9 (11.5-14.5) % Plt Count 260 (130-400) K/uL MPV 10.6 H (7.4-10.4) fL Sodium (136-145) mmol/L Potassium (3.5-5.1) mmol/L Chloride (98-107) mmol/L Carbon Dioxide (21-32) mmol/L Anion Gap (3-11) BUN (7-18) mg/dl Creatinine (0.6-1.2) mg/dl Est Cr Clr Drug Dosing ml/min Est GFR ( Amer) ml/min Est GFR (Non-Af Amer) ml/min BUN/Creatinine Ratio (10-20) Glucose (70-99) mg/dl Calcium (8.5-10.1) mg/dl COVID-19 Eval [facility] Ab Screen (Neg) SARS-CoV-2, RNA, NAAT NEGATIVE (NEGATIVE) 03/17/21 03/17/21 Range/Units 05:33 05:33 WBC (4.8-10.8) K/uL RBC (4.2-5.4) M/uL Hgb (12.0-16.0) g/dL Hct (37-47) % MCV (80-100) fL MCH (25-34) pg MCHC (32-36) g/dL RDW Std Deviation (36.4-46.3) fL RDW Coeff of Trina (11.5-14.5) % Plt Count (130-400) K/uL MPV (7.4-10.4) fL Sodium 140 (136-145) mmol/L Potassium 4.1 (3.5-5.1) mmol/L Chloride 110 H (98-107) mmol/L Carbon Dioxide 26 (21-32) mmol/L Anion Gap 4.0 (3-11) BUN 20 H (7-18) mg/dl Creatinine 0.69 (0.6-1.2) mg/dl Est Cr Clr Drug Dosing 77.4 ml/min Est GFR ( Amer) 102.2 ml/min Est GFR (Non-Af Amer) 88.2 ml/min BUN/Creatinine Ratio 28.6 H (10-20) Glucose 141 H (70-99) mg/dl Calcium 8.8 (8.5-10.1) mg/dl COVID-19 Eval Order Hepatitis C Ab Screen Neg (Neg) SARS-CoV-2, RNA, NAAT (NEGATIVE) Total Time Total Time Spent Total Time Spent (In Minutes): 20 Discharge Plan Discharge Items Patient Disposition: Home - Home Health Services Reason For Visit: Unilateral Primary Osteoarthritis, Left Knee Discharge Diagnosis: Left knee osteoarthritis Activity: Per Instructions section Non-emergency contact: Surgeon Call non-emergency contact if: you have any medication questions, your pain is not controlled, your pain is unusual for you, your pain is concerning for you, you have a fever, your temperature is above 101, your wound has increased drainage and your wound pain has increased Follow-up/Referrals: Shahana Hollins PA-C [Primary Care Provider] - Diet: Regular Addtl Attending Provider Instructions: ACTIVITY RECOMMENDATIONS: SELF CARE INSTRUCTIONS AFTER TOTAL KNEE REPLACEMENT A. You may need to continue a physical therapy program after discharge from the hospital. There are several options available to you. Your doctor will assist you in selecting the best one for you. 1. An out-patient facility 2 to 3 times a week for therapy or home therapy. 2. Continue working on all exercises taught to you in the hospital. Your goals should be to increase bending of your knee to 90 degrees and beyond and to fully straighten your knee. B. You may progress at your own pace from walking with a walker or crutches to a cane; then to no assistive devices. C. Make walking a part of your daily routine. Be up as much as comfortable with rest periods throughout the day. Rest with leg elevation is very important. Use the ice wrap frequently for the first 3-4 weeks. D. There are no restrictions on activities. You may ride in a car, shop, participate in cold food packer and all social activities. E. Wear the long elastic stockings (IAN hose) 20 hours a day for 2 weeks after surgery. They can be removed several times a day for laundering and for a bath. F. You may shower, no tub baths until cleared by your doctor. SPECIAL CARE INSTRUCTIONS: VERY IMPORTANT TO READ AND REVIEW A. There are a few signs you need to watch for after you are home. Call [facility] if you notice any of the followin. Increased severe knee pain. Some pain is expected especially when you exercise. 2. Increased swelling in your leg or knee; pain or swelling of the calf muscle in either lower leg. 3. Any fluid drainage from the incision. 4. Shortness of breath or chest pain. B. Please call [facility] at if you have any concerns or questions about your operation or recovery. The doctor or his nurse will return your call promptly. C. You must take antibiotics before dental work, bladder, bowel or other surgery. Your doctor will provide you with a permanent care to carry describing this precaution. IMPORTANT: * REMEMBER TO TAKE ASPIRIN, 81 MG, TWICE DAILY FOR 4 WEEKS UNLESS OTHERWISE DIRECTED. THIS IS YOUR BLOOD THINNER. * HIGH RISK PATIENTS MAY BE PRESCRIBED A STRONGER BLOOD THINNER. THIS WILL BE PROVIDED AT DISCHARGE. * CALL IF INCREASED PAIN, REDNESS, DRAINAGE OR FEVER GREATER THAT 101. * WEAR IAN HOSE 20 HOURS PER DAY FOR 2 WEEKS. This is a large suction dressing covering your incision. This will help pull any excess drainage from the wound and allow your incision to heal properly. You may shower with this if you can keep the unit outside of the shower. If any bleeding or leakage is noted please call your doctor's office. This will remain on your incision for 7 days and then should be removed. This can be done yourself or by the home nursing staff if applicable. The entire unit is disposable once removed. Once removed, keep incision clean and dry. If redness or drainage is noted, please call your surgeon. IF INCISION IS LEAKING THROUGH DRESSING, CALL THE OFFICE . FOLLOW UP VISIT: If appointment is not already scheduled: Please call [facility] to make a follow-up appointment for 2 weeks after your surgery at . Stand-Alone Forms: [facility] [place] [employer], Smoking Cessation Medications and DC Order Prescriptions: New celecoxib [Celebrex] 200 mg Capsule 200 mg PO BID Qty: 60 RF: 0 aspirin 81 mg Tablet,Delayed Release (Dr/Ec) 81 mg PO BID Qty: 60 RF: 0 acetaminophen [Tylenol Extra Strength] 500 mg Tablet 1,000 mg PO Q8 Qty: 60 RF: 0 oxycodone 5 mg Tablet 5 - 10 mg PO .Q4h-6h MDD 6 PRN (Reason: pain) Qty: 30 RF: 0 Continued rizatriptan 10 mg Tablet 10 mg PO DIRECTED PRN (Reason: Migraine Headache) RF: 0 omeprazole magnesium [Prilosec OTC] 20 mg Tablet,Delayed Release (Dr/Ec) 20 mg PO PM RF: 0 Biofreeze (menthol) 4 % Gel 1 applic TOPICAL BID PRN (Reason: Pain) RF: 0 atenolol 25 mg Tablet 50 mg PO QAM RF: 0 ascorbic acid (vitamin C) [Vitamin C] 500 mg Tablet 500 mg PO DAILY RF: 0 cholecalciferol (vitamin D3) [Vitamin D3] 25 mcg (1,000 unit) Tablet 25 mcg PO DAILY RF: 0 Discontinued Celebrex 1 tab PO DAILY RF: 0 Discharge Orders: Discharge Order (Routine); Ordered 03/17/21 Ordered By: Devan Lea/Other Patient Handouts: DVT Post Op Prevention, After Knee Replacement: Back at Home Admission Data Admit Date/Time: 03/16/21 12:24 Attending Provider: Reinier Farias Admit Provider: Reinier Farias Primary Care Provider: Shahana Hollins Other Providers: Farheen Olson ; Manuela Hoover ; Chaitanya,Home Health Other Interventions: Discharge Summary Assessment (RN) Last Done: 03/17/21 14:01
== END 2021-03-17 15:30 | disposition home health service (06) ==
LOC: ASU 06:14 → 3E 06:14